=== PATIENT | female | born 1985 | race Caucasian/White ===

== ENCOUNTER 2022-06-24 10:31 | Outpatient (CLI) | payer BC, SELFPAY ==
[2022-06-24 16:59] LABS: Chlamydia DNA Amplified* NOT DETECTED (No Detected); GC DNA Amplified* NOT DETECTED (No Detected)
[2022-06-24 17:02] LABS: Hepatitis B Surface Antigen* Negative (Negative)
[2022-06-24 17:06] LABS: TSH With Reflex to FT4* 0.686 uIU/mL (0.270-4.200)
[2022-06-24 17:17] LABS: HIV 1/2/P24 Combo Screen* Negative (Negative)
[2022-06-24 17:20] LABS: Hepatitis C Virus Antibody* Negative (Negative)
[2022-06-25 16:15] LABS: Rubella Antibody IgG 49.2 IU/mL
[2022-06-25 21:10] LABS: Rapid Plasma Reagin (RPR) Non Reactive (Non Reactive)
== END 2022-06-24 10:32 | disposition home or self-care (01) ==
PROVIDERS: Visit Provider Advanced Practice Midwife
DX: Z34.91 Encounter for supervision of normal pregnancy, unspecified, first trimester (principal); Z3A.09 9 weeks gestation of pregnancy
CPT/HCPCS: 76817; 84443; 86592; 86703; 86762; 86787; 86803; 86850; 86900; 86901; 87086; 87340; 87491; 87591

== ENCOUNTER 2022-09-02 13:31 | Outpatient (CLI) | payer BC, SELFPAY | END 2022-09-02 13:32 | disposition home or self-care (01) | LOC: US 13:31 | PROVIDERS: Visit Provider Pediatrics Neonatal-Perinatal Medicine | DX: O09.522 Supervision of elderly multigravida, second trimester (principal); Z3A.19 19 weeks gestation of pregnancy | CPT/HCPCS: 76811 ==

== ENCOUNTER 2022-10-30 08:48 | Outpatient (CLI) | payer BC, SELFPAY ==
[2022-11-01 23:10] LABS: Rapid Plasma Reagin (RPR) Non Reactive (Non Reactive)
== END 2022-10-30 08:49 | disposition home or self-care (01) ==
LOC: NFLDREF 08:48
PROVIDERS: Visit Provider Advanced Practice Midwife
DX: O09.519 Supervision of elderly primigravida, unspecified trimester (principal)
CPT/HCPCS: 86592

== ENCOUNTER 2022-12-24 10:30 | Outpatient (CLI) | payer BC, SELFPAY ==
[2022-12-25 11:42] LABS: Strep B DNA Probe NEGATIVE (Negative)
[2022-12-25 11:47] LABS: Strep B Pen/Amox Allergy No
== END 2022-12-24 10:31 | disposition home or self-care (01) ==
LOC: NFLDREF 10:30
PROVIDERS: Visit Provider Advanced Practice Midwife
DX: O09.513 Supervision of elderly primigravida, third trimester (principal); Z3A.35 35 weeks gestation of pregnancy
CPT/HCPCS: 87081; 87653

== ENCOUNTER 2023-01-29 07:01 | Outpatient (CLI) | payer BC, SELFPAY ==
--- NOTE | 2023-01-29 07:15 | CRLHL7_ITS ---
For Patients: As a result of the Century Cures Act, medical imaging exams and procedure reports are released immediately into your electronic medical record. You may view this report before your referring provider. If you have questions, please contact your health care provider. INDICATION: POST DATES COMPARISON: 09/02/2022 TECHNIQUE: Real time wheat scale imaging of the fetus was performed. Without non-stress testing. FINDINGS: Sonographic imaging demonstrates a single living intrauterine gestation. Fetus demonstrates a regular cardiac rate of 144 beats per minute. Fetus has a vertex position. The amniotic fluid volume appears decreased and there is a single deepest pocket measurement of 2.4 cm. VIDAL 4.8 cm. The fetus was active and demonstrated normal breathing movements. There was normal flexion and extension of the trunk and extremities. IMPRESSION: Normal biophysical profile score of 8 out of 8. Oligohydramnios. Dictated by Karan Cruz MD @ 01/29/2023 8:03:19 AM (Electronically Signed)
== END 2023-01-29 07:02 | disposition home or self-care (01) ==
LOC: US 07:01
PROVIDERS: Visit Provider Advanced Practice Midwife
DX: O48.0 Post-term pregnancy (principal)
CPT/HCPCS: 76819

== ENCOUNTER 2023-01-30 13:52 | Outpatient (CLI) | payer BC, SELFPAY ==
[2023-01-30 14:11] VITALS: PULSE 83; O2SAT 98
[2023-01-30 14:16] VITALS: PULSE 88; O2SAT 98
[2023-01-30 14:19] VITALS: BP 141/105; PULSE 90
[2023-01-30 14:29] VITALS: BP 129/71; PULSE 83
--- NOTE | 2023-01-30 14:51 | P.OBLDTN_ITS ---
OB - Triage/Final Diagnosis Visit Information Date of evaluation: 01/30/23 Narrative: Selene is a 37 year old 2 para 0 at 41 1/7 weeks gestation by ultrasound, who presents today for follow-up NST after BPP yesterday that shows oligohydramnios by VIDAL of 4.8. SDP was normal. It was recommended she be induced yesterday but she declined. This was discussed greatly with her in clinic yesterday. She was agreeable to NST follow-up today and BPP follow-up Wednesday, if necessary. She had a membrane sweep in clinic yesterday. She presents today with her and mom. She reports having mild cramping and contractions last evening but nothing that progressed. She went on a 4 mile walk and has been hydrating well. She would prefer not to have an induction if possible. She has been doing home methods to encourage labor including red raspberry tea, chiropractice, walking, acupunture/acupressure, and resting. She would consider castor oil as a last resort. Reason for evaluation: other (Clinic follow-up from yesterday.) Evaluation Vital signs: Vital Signs - 24 hr 01/30/23 14:11 01/30/23 14:16 01/30/23 14:19 Pulse Rate 90 Blood Pressure 141/105 H Pulse Oximetry 98 98 01/30/23 14:29 Pulse Rate 83 Blood Pressure 129/71 Pulse Oximetry Fetus (Single) Heart Rate Baseline: 130 Management Planner Variability: Moderate (6-25) Monitor Accelerations: Present Monitor Decelerations: None Final Diagnosis (1) Non-stress test reactive: Status: Acute (2) Post-dates : Status: Acute (3) Oligohydramnios: Status: Acute (4) AMA (advanced maternal age) primigravida 35+: Status: Acute Assessment & Plan Plan Detail Assessment: at 41 1/7 weeks gestation AMA Oligohydramnios Post-Dates Reactive NST She declines induction and prefers to wait for labor. Plan to discharge home and return for monitoring on Wednesday with BPP or NST. Questions answered. Patient continues to encourage labor with at home methods. She plans to avoid castor oil at this time. All questions answered. Clinic will reach out to her Wednesday morning to set up US or NST. Time Spent: Please review Coding section regarding the total time spent today in the care of this patient, separate from any independently billable service. Care includes but is not limited to a medically appropriate evaluation and ?the?documentation?of?the care?in?the?health?record.
[2023-01-30 14:54] VITALS: BP 134/83; PULSE 88
--- NOTE | 2023-01-30 15:15 | PC.OBNST ---
NST Note NST Note Start: 01/30/23 14:05 Freq: ONCE Status: Active Protocol: Document 01/30/23 15:12 [facility] (Rec: 01/30/23 15:14 [facility] [id number]) NST Note 1 Para (# of births) 0 EDC 01/22/23 Gestational Age In Weeks & Days 41 Weeks & 1 Days Patient Presented with Complaint(s) of Other Other Complaints NST performed for known oligohydramnios Reactive Yes Appropriate for Gestational Age Yes ANTONIO Soto RN Date 01/30/23 Reactive Yes Appropriate for Gestational Age Yes ANTONIO Denise Date 01/30/23 OB NST charge Yes Complete NST Note via Write Note Yes The provider's electronic signature indicates the NST is reactive/appropriate for gestational age. *Note to provider: If an addendum is required, open the patient's chart and click on the note under the Nurse/Allied Health tab.
== END 2023-01-30 15:05 | disposition home or self-care (01) ==
LOC: OB CLI 13:54 → OB 14:08
PROVIDERS: Visit Provider Advanced Practice Midwife
DX: O48.0 Post-term pregnancy (principal); O09.523 Supervision of elderly multigravida, third trimester; Z3A.41 41 weeks gestation of pregnancy
CPT/HCPCS: 59025; 99211; 99213

== ENCOUNTER 2023-02-03 06:52 | Inpatient (IN) | payer BC, SELFPAY ==
[2023-02-03] VITALS (9 sets, daily range): BP systolic 109–145; BP diastolic 56–76; PULSE 64–78; RESP 16; TEMP 36.6–36.8; O2SAT 98; BMI 38.6
--- NOTE | 2023-02-03 07:22 | W.PM.LDBA ---
Subjective History of Present Illness Time Seen by Provider: 07:15 Date Seen: 02/03/23 Comments: Patient is being admitted to Labor and Delivery for early labor. She is a 37 year old at 41.5 weeks gestation. Her full history and physical was dictated on 01/01/23 by Sanam JOHNSON with Shanel Vazquez CNM. Please see this for details. Pt states ctx started 3 pm yesterday. Able to rest last night but not sleep much. Ctx becoming steadily increasing in intensity. Mildly breathing through them in good control. Partner currently at bedside for support. Also has a backshoe person for support who will be coming in. She is coping well with labor pain/contractions. She is planning an unmedicated waterbirth. She was seen last week at which time she was noted to be oligohydramnios. She declined an IOL at that time. A follow up BPP and growth this week showed amniotic fluid on the low end of normal:? 5.9 cm VIDAL.? 2.6 cm SDP. Baby noted to be macrosomic. OB Problem List: 1. AMA Genetic testing offered, handouts given: [id number] Level II US: WNL, EFW 92% Baby aspirin recommended 2. Unplanned , excited now 3. Hx of Migraines with and without aura 4. Prepregnancy BMI >35 5. Oligohydramnios, VIDAL 4.8 (SDP 2.4) Recommended IOL at 41 weeks, pt declined Plan NST at center at 41 11/14, BPP at 41 3/7: (VIDAL 5.9, SDP 2.6) Oligo improved. Repeat BPP 02/03: 6. Macrosomia: 41.3 weeks: 9 lb 6 oz, 4243 grams OB - Problem Based A/P Additional Plan (1) AMA (advanced maternal age) primigravida 35+: Status: Acute (2) Post-dates : Status: Acute (3) Oligohydramnios: Status: Acute (4) Uterine contractions: Status: Acute Plan 37 yo at 41.5 weeks GBS negative problems: -Recent oligohydramnios, improved on follow up, but remains low normal -macrosomic Labor type: early, spontaneous Elevated BP on admit, resolved 1. Admit to L & D. 2. Monitor FHTs closely, consider switching to continious if there is concerns 3. Continue to monitor BPs, will consider pre-e labs if they remain elevated 4. Candidate for analgesia of choice. Planning unmedicated 5. Planning water . Consent signed and Hep C neg 6. Anticipate progress to NVD. Delivery/Labor/Induction Plan Plan: expectant management OB Exam Physical Exam Vital signs: Pulse BP Pulse Ox 64 145/76 H 98 02/03/23 06:21 02/03/23 06:21 02/03/23 06:34 Narrative: VSS, afebrile? General Appearance:? Calm, cooperative.? No acute distress.? Normal affect.? Psychiatric Exam: Alert and oriented, appropriate affect? HEENT: normocephalic, neck supple, full ROM? Respiratory:? Symmetrical chest wall movement.? Normal respiratory effort.? Clear to auscultation? Cardiac:? regular rate and rhythm? Abdomen: Gravid, non tender? Extremities:? normal and trace edema? Skin: warm, dry.??? Ctx:? Q 2-5 min apart.? ? Moderate? ? FHTs:? Baseline: 130.? Variability: moderate.?? Accels: present.??? Decels:? none.? SVE: 4-5/70/-2 per RN? Membranes: intact? Detailed Labor and Delivery Exam Patient Gravid: Yes
[2023-02-03 08:50] LABS: SARS PCR* Negative SARS-CoV-2 (Negative)
--- NOTE | 2023-02-03 19:01 | PM.OBPNL ---
Subjective Time Seen by Provider: 19:01 Date Seen: 02/03/23 Narrative: Selene is coping well with labor pain/contractions. Her partner, mom and executive legal secretary are with her for support. She would like to continue with non-pharmacologic methods for comfort and pain management.??She is mildly breathing through ctx. Ctx remain spaced out at least about 5 mins apart. She also had a long gap in ctx for about 30 minutes while positioned in flying cowgirl. Objective Exam: VSS, afebrile General Appearance:? Calm, cooperative. No acute distress. ? Psychiatric Exam: Alert and oriented, appropriate affect Abdomen: Gravid Ctx: ?Q 5-30 min apart. ?Mild - Moderate FHTs: WNL per RN. No decels audible w/ ctx SVE: /-2 Membranes: Intact ? Vital Signs: Last Vital Signs Temp 98 F 02/03/23 14:59 Pulse 65 02/03/23 14:59 Resp 16 02/03/23 14:59 BP 117/56 L 02/03/23 14:59 Pulse Ox 98 02/03/23 06:34 Plan Plan: Assessment:?? at 41.5 weeks gestation?? GBS negative Patient is coping well with challenges of labor.?? Labor type: Spontaneous, Early labor? complicated by: -Recent oligohydramnios, improved on follow up, but remains low normal -macrosomic Labor complicated by: -No cervical change since being admitted this AM ? Plan:?? Conversation had w/ pt about lack of cervical change. Recommended we start pitocin. Reviewed the risk of fatigue for her and intolerance for prolonged labor. Pt states she would prefer to keep going with position changes. Believes that all the position changes have prevented the baby from being on the cervix. May consider nipple stimulation or accupressure points. Declines pitocin at this time. May consider at a later time. Did briefly review the option of AROM, but reviewed may not help and concern for intolerance of labor with low fluid. Continue to monitor FHTs for decels Continue with routine intrapartum cares as ordered.?? Patient encouraged to move and change positions to promote physiologic labor and .?? Nonpharmacologic comfort measures per patient preference. Candidate for analgesia of choice if desired. Patient planning waterbirth Anticipate progress to NVD.
[2023-02-04] VITALS (25 sets, daily range): BP systolic 93–143; BP diastolic 56–75; PULSE 66–107; RESP 16–20; TEMP 36.8–37.1; O2SAT 96
--- NOTE | 2023-02-04 03:22 | P.OBPN_ITS ---
Subjective Time Seen by Provider: 03:22 Date Seen: 02/04/23 Narrative: Selene is coping well with labor pain/contractions. Dry Boss and partner are with her for support. Pt currently sleeping. Declines SVE. Briefly on monitor when she decided to rest, but removed again at pt request and returned to [facility] [place]. Objective Exam: VSS, afebrile General Appearance:? Calm, cooperative. No acute distress. ? Psychiatric Exam: Alert and oriented, appropriate affect Abdomen: Gravid Ctx: ?Q 1-12 min apart. ?Mild FHTs: Baseline: 145. Variability: moderate. Unable to determine accels vs decels when first placed on monitor. SVE: Declined Membranes: Intact ? Vital Signs: Last Vital Signs Temp 98.2 F 02/03/23 19:05 Pulse 74 02/04/23 03:20 Resp 16 02/03/23 19:05 BP 102/57 L 02/04/23 03:20 Pulse Ox 98 02/03/23 06:34 Plan Plan: Assessment:?? at 41.6 weeks gestation?? GBS neg Patient is coping well with challenges of labor.?? Labor type: Spontaneous, Prodromal labor? complicated by: -Low fluid -macrosomia Labor complicated by: -a few elevated BPs on admit, resolved -little cervical change ? Plan:?? Pt declined SVE. Reviewed continued recommendation for pitocin, as when she was briefly on monitor ctx noted to be quite spaced out, and mild enough that she is sleeping through them. She declines pitocin again at this time. Continue with routine intrapartum cares as ordered.?? Patient encouraged to move and change positions to promote physiologic labor and . Rest as needed.?? Nonpharmacologic comfort measures per patient preference. Candidate for analgesia of choice if desired. Patient planning waterbirth Anticipate progress to NVD.
--- NOTE | 2023-02-04 08:24 | P.OBPN_ITS ---
Subjective Date Seen: 02/04/23 Narrative: Selene is a 37 yo at 41 6/7 weeks gestation. She is coping well with labor pain/contractions. Her labor started on 02/02 at about 2pm. She presented to the center yesterday morning. She made slow progression after admission but has been actively moving and repositioning to encourage labor. Contractions spaced out over night. She declined augmentation with IV pitocin. She was able to rest some and this morning reports she is feeling energized. She is currently being supported by and shower doors and panels fabricator. At this time, she would prefer to eat breakfast, take a walk, and try other measures to encourage labor including Nipple stimulation. Understands the current plan of care. Questions answered to her satisfaction. She would like to continue with movement and activity for comfort and pain management.? Objective Exam: Objective: Constitutional: Alert and oriented x3, mild distress, coping well Vital signs stable, see nurse documentation Abdomen: gravid, contractions palpate mild/moderate with contractions and soft between Cervix: Most recent was last evening, 5/100/-2. NST: deferred, has been allowing intermittent monitoring. Planning NST this am. Vital Signs: Last Vital Signs Temp 98.2 F 02/04/23 07:15 Pulse 72 02/04/23 07:14 Resp 16 02/04/23 07:15 BP 118/56 L 02/04/23 07:14 Pulse Ox 98 02/03/23 06:34 Contractions Monitor mode: External (Intermittent auscultation) Contraction Frequency: 5-10 Contraction pattern: Irregular Contraction intensity: Moderate Assessment Assessment: prodromal labor and early labor Labor Progress: Slow labor progression Plan Plan: Assessment:?? at 41.6 weeks gestation?? GBS neg Patient is coping well with challenges of labor.?? Labor type: Spontaneous, Prodromal/early labor? complicated by: -Low fluid -suspected macrosomia Labor complicated by: -a few elevated BPs on admit, resolved -slow cervical change ? Plan:?? Continue with routine intrapartum cares as ordered.?? Met with patient and reviewed her plan this am. She would prefer to encourage labor on her own, she felt she was able to rest and re-energize for today. Discussed concerns with prodromal/early labor and risk for maternal and fatigue. I recommended an NST this morning for overall fetus status assessment. She is agreeable but would like to eat breakfast and walk first. She is hoping to try nipple stimulation this morning but I encouraged NST first to make sure we are not stressing baby. I did not discuss Pitocin at this time since contractions had spaced over night, and she has been declining, I agree to wait and try other ways. I did state that we would review labor changes later this morning if she is unable to encourage contractions to return. She is open to this. I will have a more in depth conversation about this at that time. Fetus has remained reassuring via intermittent auscultation. Patient encouraged to move and change positions to promote physiologic labor and .? Rest as needed.?? Nonpharmacologic comfort measures per patient preference. Candidate for analgesia of choice if desired. Patient planning waterbirth Anticipate progress to NVD.?
--- NOTE | 2023-02-04 20:04 | W.PM.OBVAGDE ---
OB Procedure Vag Delivery Mother Details Mother Details: Selene is a 37 year-old, 2 now Para 1, admitted on 02/03/23 at 41.6 days gestation. Her labor had began 02/02/2023 at 2 pm and slowly processed. On arrival yesterday, she was 4 cm and progressed to 5 cm throughout the day. She declined intervention throughout the night but was able to get some rest since her contractions had spaced out. This morning she worked with her solution designer and to promote labor progression without augmentation by nipple stimulation, activity, labor circuit, labor positioning, and rest. Labor progressed normally after it resumed and contractions began to be regular around 1245. Patient labored in the tub for the rest of her labor. : 2 Para: 1 Weeks Gestation: 41.6 Admission Date: 02/03/23 Additional Details Amniotic Membrane Status: SROM Amniotic Membrane Rupture Date: 02/04/23 Amniotic Membrane Rupture Time: 17:06 Amniotic Membrane Fluid Description: Clear Analgesia/Anesthesia Type: None Waterbirth: Yes Pitcoin: No Intrapartal Events: Prolonged Labor >20 Hrs (Prodromal labor, onset of regular contractions to complete normal) Labor Onset: 12:45 Complete: 17:30 (Assumed with pushing) Pushin:30 Heart: heart tones during second stage were reassuring via intermittent monitoring throughout. Difficult ascultation due to maternal positioning and position/ for last 45 minutes of labor. Occasionally heard with doppler but unable to obtain for a appropriate periods. Continually at bedside. Delivery Details Delivery Date: 02/04/23 Delivery Time: 18:56 Route of delivery: Infant Gender: Male Infant Viability: Alive; Heart Rate Present Position at Delivery: OA Delivery Details: Patient was admitted for spontaneous labor with prodromal labor for 24+ hours with slow progression. After onset of regular contractions she progressed normally. Cervical exam performed before she entered tub. She was 7-8 cm/100/-1 with head well applied to cervix. Over a few hours she began to feel pressure with intermittent urge to push. She began pushing intermittently at the peak of contractions with urge. SROM noted at 1706 with clear fluid. At 1730 she began pushing actively with urge with good progress. Cervical exam not performed. Patient was assumed complete with pushing at 1730. of a viable male at 1856 in hands and knees in the tub. Vertex delivered OA with assistance of patients partner. No nuchal cord or shoulder. Body delivered easily and without incident. passed between mothers legs and brought up by mother. [place] was slow to cry with vigorous stimulation. Short cord noted, some water drained from tub and fetus remained at mothers lower abdomen. Cord was clamped and cut at > 5 minutes. APGARS were 7 at one minute and 8 at five minutes respectively. was passed to father while mother was assisted from tub and transferred to bed. Intact placenta with a 3 vessel cord delivered spontaneously at 1927. Fundus firm. 1st degree identified, shallow and with pressured hemastasis was achieved therefore not repair was done. EBL 350 in the tub with QBL 25 cc, total of 375 cc. Mother and baby stable; mother plans to breastfeed. weight pending. 1 Minute Interval Total Score: 7 5 Minute Interval Total Score: 8 Additional Details Shoulder Dystocia: No Placenta Delivery Time: 19:27 Placental Delivery Description: Spontaneous Procedure Done: only Blood Loss: 375 Laceration: Perineal - 1st Degree Blood Loss Measurement Type: QBL (w/ EBL from tub) Bakri Used: No Sponge/Need Count Correct: No Cord Vessel Description: 3 Vessels Event Summary Status: Mother and infant were stable after delivery. Disposition: floor
--- NOTE | 2023-02-04 20:04 | PM.OBPNL ---
Subjective Time Seen by Provider: 15:15 Date Seen: 02/04/23 Narrative: Selene is a 37 yo at 41 6/7 weeks gestation. She is coping well with labor pain/contractions while in the tub. She is intermittently starting to have pressure with contractions. She is currently being supported by her mom, her sewing techniques demonstrator, and her partner, Nabeel.. Understands the current plan of care. Questions answered to her satisfaction. Reports concerns regarding: none. She would like to continue with tub for comfort and pain management.?? Objective Exam: Constitutional: Alert and oriented x3, moderate distress, coping well Vital signs stable, see nurse documentation Abdomen: gravid, contractions palpate strong with contractions and soft between Cervix: deferred Intermittent auscultation: 130-140's, reassuring. Vital Signs: Last Vital Signs Temp 98.8 F 02/04/23 14:35 Pulse 84 02/04/23 19:34 Resp 16 02/04/23 16:50 BP 129/65 02/04/23 19:34 Pulse Ox 98 02/03/23 06:34 Contractions Monitor mode: External (Intermittent auscultation) Contraction pattern: Regular Contraction intensity: Strong/Firm Assessment Assessment: active labor Plan Plan: Assessment:?? at 41.6 weeks gestation?? GBS neg Patient is coping well with challenges of labor.?? Labor type: Spontaneous, active labor? complicated by: -Low fluid -suspected macrosomia Labor complicated by: -a few elevated BPs on admit, resolved -Prodromal labor ? Plan:?? Continue with routine intrapartum cares as ordered.?? NST this morning was reactive. Pt continues to labor spontaneously, in the tub. Will await urge to push and continue with intermittent monitoring. Patient encouraged to move and change positions to promote physiologic labor and .? Rest as needed.?? Nonpharmacologic comfort measures per patient preference. Candidate for analgesia of choice if desired. Patient planning waterbirth. Anticipate progress to NVD
[2023-02-05 03:30] VITALS: BP 107/66; PULSE 97; RESP 18; TEMP 36.8; O2SAT 95
--- NOTE | 2023-02-05 08:13 | P.OBPN_ITS ---
OB - PN:Subj Subjective Time Seen by Provider: 08:13 Date Seen: 02/05/23 Interval history: Selene is a 37 y.o. who was admitted to L & D for prodromal labor. She had an uncomplicated NVD. Patient comments OB post-: no complaints, pain well controlled, tolerating diet and flatus present [place] infant status: doing well feeding status: exclusively Narrative: The patient feels well. The pain is well controlled with current medications. She has no new complaints. She is breast feeding and reports things are overall going well, but baby has been a bit sleepy.? the patient has done well.? Vitals have been stable.? She has remained afebrile.? Has a good appetite, is tolerating a general diet. She is voiding without difficulty.? She is passing gas and has not had a bowel movement.? She is ambulating and denies any dizziness.? Has Small amount of rubra lochia. OB - PN: Obj Exam Physical Exam: Vital signs: Temp Pulse Resp BP Pulse Ox O2 Del Method 98.3 F 97 18 107/66 95 Room Air 02/05/23 03:30 02/05/23 03:30 02/05/23 03:30 02/05/23 03:30 02/05/23 03:30 02/05/23 03:30 Narrative: GENERAL APPEARANCE: normal affect, alert, no distress MOOD: appropriate HEENT: normocephalic, neck supple, full ROM CHEST: Symmetrical chest wall movement. Normal respiratory effort. Clear to auscultation HEART: regular rate and rhythm ABDOMEN: soft, non-tender. Uterine fundus is firm, at Umbilicus, Midline and is appropriate for the stage of recovery. Bowel sounds present. PERINEUM: mild edema of the perineum, there is a 1st degree laceration that is healing well. EXTREMITIES: normal and trace edema OB - PN: A/P Vaginal Delivery Assessment and Plan (1) AMA (advanced maternal age) primigravida 35+: Status: Acute (2) Post-dates : Status: Acute (3) Oligohydramnios: Status: Acute (4) Uterine contractions: Status: Acute Plan Plan: routine care Comments: G 2 P 1 status post uncomplicated NVD 1. Continue route PP cares 2. . May see if desired. Baby sleepy, encouraged to stay until tomorrow to make sure feeding is well established. 3. Anticipate discharge home tomorrow. Pt would like to DC home this evening. Discharge instructions reviewed, but will reassess this evening to see if feedings have improved.
[2023-02-05 08:19] VITALS: BP 108/71; PULSE 73; RESP 16; TEMP 36.8; O2SAT 95
[2023-02-05 11:00] VITALS: BP 112/73; PULSE 89; RESP 16; TEMP 36.8; O2SAT 95
[2023-02-05 15:00] VITALS: BP 97/62; PULSE 89; RESP 16; TEMP 36.8; O2SAT 96
[2023-02-05 23:00] VITALS: BP 121/72; PULSE 78; RESP 18; TEMP 36.7; O2SAT 95
--- NOTE | 2023-02-06 08:06 | PM.OBDSVD1 ---
DS: Providers Provider Time Seen by Provider: 08:07 Date Seen: 02/06/23 Date of admission: 02/03/23 06:52 Primary care physician: Not a Local Provider Admitting Clinician: Shanel Vazquez CNM Attending Physician on discharge: Shanel Vazquez CNM Date of Discharge: 02/06/23 DS: Diagnosis Discharge Diagnosis (1) Normal vaginal delivery: Status: Acute (2) Lactating mother: Status: Acute Exam Narrative: Exam Narrative: VSS, afebrile GENERAL APPEARANCE: ?normal affect, alert, no distress MOOD: ?appropriate HEENT: normocephalic, neck supple, full ROM CHEST: ?Symmetrical chest wall movement. ?Normal respiratory effort. ?Clear to auscultation HEART: ?regular rate and rhythm ABDOMEN: ?soft, non-tender. Uterine fundus is firm, at Umbilicus, Midline and is appropriate for the stage of recovery. ?Bowel sounds present. PERINEUM: ?mild edema of the perineum, there is a 1st degree laceration that is healing well. EXTREMITIES: ?normal and trace edema Const: Vital Signs, click to edit/add: Vital Signs - 24 hr 02/05/23 08:19 02/05/23 11:00 02/05/23 15:00 Temperature 98.2 F 98.2 F 98.2 F Pulse Rate [Blood Pressure Cuff] 73 89 89 Respiratory Rate 16 16 16 Blood Pressure [Ri ght Arm] 108/71 112/73 97/62 Pulse Oximetry 95 95 96 Oxygen Delivery Me thod Room Air Room Air Room Air 02/05/23 23:00 Temperature 98.0 F Pulse Rate [Blood Pressure Cuff] 78 Respiratory Rate 18 Blood Pressure [Ri ght Arm] 121/72 Pulse Oximetry 95 Oxygen Delivery Me thod Room Air Documenting provider has reviewed patient's vital signs: yes OB - DS: Summary Hospital Course Hospital Course: Selene is a 37 y.o. G 2 P 1 who was admitted to L & D for early/prodromal labor. ?She had an uncomplicated NVD The patient feels well. ?The pain is well controlled with current medications. ?She has no new complaints. ?She is breast feeding and reports things are going well overall. Has improved since yesterday/.? the patient has done well.? Vitals have been stable.? She has remained afebrile.? Has a good appetite, is tolerating a general diet. ?She is voiding without difficulty.? She is passing gas and has had a bowel movement.? She is ambulating and denies any dizziness.? Has Small amount of rubra lochia. She is planning partner vasectomy and condoms for prevention. Problems: none plan: Discharge home with baby. Follow up in 2 weeks and 6 weeks. , may follow up with if needed Peripartum Data Infant delivery method: Vaginal Laceration description: Perineal - 1st Degree complications: none [place] Gender: Male Status at Discharge Functional status at discharge: independent ambulation Overall status at discharge: patient is progressing back to baseline Time Spent with Patient Time attestation: Total time spent providing and/or coordinating discharge services: Time spent: Less than 30 minutes Discharge Plan Discharge Disposition: Home, Self-Care Date of Admission: 02/03/23 06:52 Attending Provider on Discharge: Lizbeth Art Primary Care Provider: Provider,Not a Local Condition: Stable Anticipated Discharge Date/Time: 02/06/23 10:00 Discharge Medications: New docusate sodium 100 mg Capsule 100 mg PO BID PRNQty: 100 0RF Rx Instructions: Take 1 cap 1-2 times a day as needed for constipation ibuprofen 600 mg Tablet 600 mg PO Q6H PRNQty: 60 0RF Continued iris (Zingiber officinalis) 250 mg capsule 375 mg PO ONCE calcium carb-D3-mag [id number] [phone] mi-sknk-yq-mg tablet 1 tab PO ONCE Rx Instructions: administer with a meal cholecalciferol (vitamin D3) 50 mcg (2,000 unit) capsule 50 mcg PO QDAY doTerra alpha crs plus 1 pill PO DAILY doterra micro plex vmz 1 cap PO DAILY doterra xEO shayy 1 cap PO DAILY doterra tumeric 1 cap PO DAILY doterra serenity 1 cap PO DAILY doterra on guard + 1 cap PO DAILY doterra terrazyme 1 cap PO DAILY doterra pb assist 1 cap PO DAILY doterra copaiba 1 cap PO DAILY doterra mitomax 1 cap PO DAILY doterra digestzen 1 cap PO DAILY PRN garlic 300 mg capsule 300 mg PO QDAY Discontinued folic acid 800 mcg tablet 0.8 mg PO QDAY Discharge Orders: Discharge Order (Routine); Ordered 02/06/23 Ordered By: Lizbeth Art Patient Education: OB Over the Counter Medication Information, OB Vaginal/Breast Feeding Additional Instructions: Follow up in 2 week and 6 week Activity Level: Activity as Tolerated Discharge Diet: Regular Follow Up Appointments: Provider,Not a Local [Primary Care Provider] - [facility]
[2023-02-06 09:30] VITALS: BP 123/82; PULSE 79; RESP 18; TEMP 36.8
== END 2023-02-06 10:45 | disposition home or self-care (01) | DRG 560 ==
LOC: OB OUT 06:52 → OB 06:52
PROVIDERS: Admitting Provider Advanced Practice Midwife; Visit Provider Advanced Practice Midwife
DX: O63.0 Prolonged first stage (of labor) (principal); O48.0 Post-term pregnancy; O70.0 First degree perineal laceration during delivery; O41.03X0 Oligohydramnios, third trimester, not applicable or unspecified; R03.0 Elevated blood-pressure reading, without diagnosis of hypertension; Z3A.41 41 weeks gestation of pregnancy; Z37.0 Single live birth
CPT/HCPCS: 76816; 76819; 87635; J2001

== ENCOUNTER 2023-02-12 13:16 | Outpatient (CLI) | payer BC, SELFPAY ==
--- NOTE | 2023-02-12 16:21 | W.PM.LAC.MC ---
Consult Note - Mom Date of Visit Date of visit: 02/12/23 new vehicle sales consultant: Selene Aguilar Visit Code: Visit Patient's Information Phone number: [phone] : 2 Para: 1 Allergies cat dander Allergy (Mild, Verified 02/04/23 21:37) Rash nickel Allergy (Mild, Verified 02/04/23 21:37) Rash Mother's Medical History: Medical History (Updated 02/07/23 @ 00:01 by ) Migraine aura occurring with and without headache ?G43.109 - Migraine with aura, not intractable, without status migrainosus (ICD-10) Type of Contraception: boyfriend plans vasectomy Delivery Information Delivery type: Vaginal Weeks Gestation: 41.6 Gestational Age: AGA Weight: 3.85 kg Discharge Weight: 3.736 kg Baby's Information Medications: pnv Baby's Age at Visit: 8 days Baby's Provider or Clinic: [facility] Jaundice: No Reason for Consult Reason for Consult: poor feeding, sleepy, weight loss Past Experience Past Experience: No Current Frequency of Day Feedings: attempts to nurse every 2 - 3 hours around the clock Both Breasts: Yes Suck: doesn't always latch/suckle Length of Time: will attempt for about 30 minutes Pumping Pumping: Yes (not consistently) Quantity Pumped: about .5 oz total each time Supplementing EMB Supplement: Yes (a few times with a few cc's of her prenatally expressed colostrum) Formula Supplement: No Baby Elimination Number of Wet Diapers a Day: baby has not had a void in about 15 hours Number of BM a Day: about 4/day; yellow and seedy Breast/Nipple Condition Engorgement: No Maternal Nipple Condition - Left: Common Nipple Maternal Nipple Condition - Right: Common Nipple Sore Nipples: No Onsite Pre-Feed weight: 3.322 kg Post-Feed weight: 3.336 kg Milk Transferred (mL): 14 Pre-Nursing Left Nipple: Within Normal Limits Pre-Nursing Right Nipple: Within Normal Limits Post-Nursing Left Nipple: Within Normal Limits Post-Nursing Right Nipple: Within Normal Limits Assessments/Interventions Assessments/Interventions: Assessments/Interventions: Met with mom and this now 8 day old ex- term AGA baby for consult.? Mom reports she attempts to nurse baby every 2 - 3 hours, but he's very sleepy at the breast and sometimes won't latch.? She started to offer some of the colostrum she hand expressed prenatally, but it's only a few cc's each time and not after every feeding.? She has a [employer]in[employer] electric pump and has used it a few times but has only been able to pump about .5 ml total each time (which she has also offered to baby on occasion). Mom is 37 and this is her first baby, no hx of breast surgery/trauma.? Breasts are symmetrical, the intramammary distance is < 1.5 inch, the areola is not disproportionately large or bulbous.? The lower quadrants aren't rounded and she has significant stretch mendez to the outside of both breasts.? She was able to express some colostrum (about 1 ml/day) before delivery.? She reported feeling her milk came in on 02/09 but that was the only day she noticed a change in her breasts.? Nipples are everted and don't flatten or retract on compression; no damage noted. Baby has lost 165 grams (5.5 oz) since his NB visit on 02/08 and is now 14% below BW (down from 12% on the ).? Mom also reports he hasn't had a wet diaper for about 15 hours, but he has about four BM's daily.? Per mom he did not have a caput/cepalohematoma.? He favored turning his head to one side but he had a chiropractor appointment earlier this week and she feels this has helped re-align him.? He has a little bit of a receding chin.? His palate is a little high.? His upper and lower frenulum appear to be WNL.? He has a fairly strong suck on a finger and the tongue extends past the gum line; also has good lateral movement.? Mom latched him on the left side in the football hold and he had a wide latch.? He was fairly vigorous at first and swallowing was heard but after several minutes he slowed down.? He was easy to rouse but wasn't very aggressive at the breast after those first 5 or so minutes.? Mom was able to rouse him again and offered the right side.? He was sleepier on this side but swallowing was heard initially.? After about a 20 minute total nursing attempt he was weighed and had transferred 14 ml. Mom then pumped and after about 20 minutes got .5 oz.? Her flange size was assessed and it was suggested she order 20 mm flanges.? Donor milk was warmed and grandma was shown how to pace feed baby, she gave 1 oz. Plan; 1. Continue to practice nursing every 2 - 3 hours.? Offer both sides and work to keep him awake and actively nursing.? Keep the nursing sessions to 20 - 30 minutes total for now. 2. Pump after as many feeding sessions as possible but at least six times/24 hours. 3. Supplement baby with 2 oz after every nursing session (we did 1 oz in clinic d/t time constraints, they will start 2 oz at the next feeding). 4. F/U in the Center on 02/13 for a weight check and in on 02/15. 5. Will fax note to baby's PCP at [facility] and the clinic was also called to advise provider of baby's weight loss and the plan. Meds Home Medications and Allergies Home Medications Medication Instructions Recorded Confirmed Type cholecalciferol (vitamin D3) 50 50 mcg PO QDAY 06/24/22 02/03/23 History mcg (2,000 unit) capsule doTerra alpha crs plus 1 pill PO DAILY 06/24/22 02/04/23 History doterra copaiba 1 cap PO DAILY 06/24/22 02/04/23 History doterra digestzen 1 cap PO DAILY PRN 06/24/22 02/04/23 History doterra micro plex vmz 1 cap PO DAILY 06/24/22 02/04/23 History doterra mitomax 1 cap PO DAILY 06/24/22 02/04/23 History doterra on guard + 1 cap PO DAILY 06/24/22 02/04/23 History doterra pb assist 1 cap PO DAILY 06/24/22 02/04/23 History doterra serenity 1 cap PO DAILY 06/24/22 02/04/23 History doterra terrazyme 1 cap PO DAILY 06/24/22 02/04/23 History doterra tumeric 1 cap PO DAILY 06/24/22 02/04/23 History doterra xEO shayy 1 cap PO DAILY 06/24/22 02/04/23 History iris (Zingiber officinalis) 250 375 mg PO ONCE 08/14/22 02/03/23 History mg capsule calcium carb-vit A9-awdrjgygh-duor 1 tab PO ONCE 10/30/22 02/03/23 History 333 mg-200 unit-133 mg-5 mg tablet garlic 300 mg capsule 300 mg PO QDAY 12/24/22 02/03/23 History Allergies Allergy/AdvReac Type Severity Reaction Status Date / Time cat dander Allergy Mild Rash Verified 02/04/23 21:37 nickel Allergy Mild Rash Verified 02/04/23 21:37
== END 2023-02-12 13:17 | disposition home or self-care (01) ==
LOC: OB LAC 13:17
PROVIDERS: Visit Provider Advanced Practice Midwife
DX: Z39.1 Encounter for care and examination of lactating mother (principal)
CPT/HCPCS: 99211

== ENCOUNTER 2024-09-12 13:47 | Outpatient (CLI) | payer BC, SELFPAY ==
--- NOTE | 2024-09-12 14:00 | CRLHL7_ITS ---
For Patients: As a result of the Century Cures Act, medical imaging exams and procedure reports are released immediately into your electronic medical record. You may view this report before your referring provider. If you have questions, please contact your health care provider. HISTORY: Dating and viability COMPARISON: None available of this gestation. TECHNIQUE: Transvaginal ultrasound examination of the early was performed. FINDINGS: A single intrauterine gestational sac is seen with a pole. The crown-rump length measurement of 4.7 cm gives an estimated gestational age of 11 weeks 3 days with an estimated date of delivery of 03/31/2025. This correlates well with the LMP of 06/30/2024 which gives a clinical age of 10 weeks 4 days. Regular cardiac activity is seen at 163 BPM. There is no sign of free fluid in the pelvis. The right ovary has simple cyst which could be a corpus luteum cyst of . There is normal color Doppler flow in the right ovary. The left ovary can not be identified. IMPRESSION: Single intrauterine gestation with estimated age of 11 weeks 3 days. Regular cardiac activity is seen. Dictated by Kyler Garrison MD @ 09/12/2024 11:08:03 PM (Electronically Signed)
== END 2024-09-12 13:48 | disposition home or self-care (01) ==
LOC: US 13:47
PROVIDERS: Visit Provider Advanced Practice Midwife
DX: Z34.91 Encounter for supervision of normal pregnancy, unspecified, first trimester (principal); Z3A.11 11 weeks gestation of pregnancy
CPT/HCPCS: 76817; 86703; 86706; 86803; 86850; 87086; 87340

== ENCOUNTER 2024-09-12 15:09 | Outpatient (CLI) | payer BC, SELFPAY | END 2024-09-12 15:10 | disposition home or self-care (01) | PROVIDERS: Visit Provider Advanced Practice Midwife | DX: Z34.91 Encounter for supervision of normal pregnancy, unspecified, first trimester (principal); O09.521 Supervision of elderly multigravida, first trimester; Z3A.10 10 weeks gestation of pregnancy | CPT/HCPCS: 86592; 86703; 86704; 86706; 86762; 86787; 86803; 86850; 87086; 87340; 87491; 87591 ==

== ENCOUNTER 2024-11-30 10:47 | Outpatient (CLI) | payer BC, SELFPAY | END 2024-11-30 10:48 | disposition home or self-care (01) | LOC: US 10:49 | PROVIDERS: Visit Provider Advanced Practice Midwife | DX: O09.522 Supervision of elderly multigravida, second trimester (principal); Z3A.21 21 weeks gestation of pregnancy | CPT/HCPCS: 76811 ==

== ENCOUNTER 2025-01-18 11:04 | Outpatient (CLI) | payer BC, SELFPAY | END 2025-01-18 11:05 | disposition home or self-care (01) | LOC: NFLDREF 01-22 01:23 | PROVIDERS: Visit Provider Advanced Practice Midwife | DX: O09.523 Supervision of elderly multigravida, third trimester (principal); Z3A.28 28 weeks gestation of pregnancy | CPT/HCPCS: 86592 ==

== ENCOUNTER 2025-03-09 11:50 | Outpatient (CLI) | payer BC, SELFPAY | END 2025-03-09 11:51 | disposition home or self-care (01) | LOC: NFLDREF 03-15 18:40 | PROVIDERS: Visit Provider Advanced Practice Midwife | DX: Z34.83 Encounter for supervision of other normal pregnancy, third trimester (principal) | CPT/HCPCS: 87081; 87653 ==

== ENCOUNTER 2025-04-12 10:24 | Inpatient (IN) | payer BC, SELFPAY ==
[2025-04-12] VITALS (18 sets, daily range): BP systolic 108–139; BP diastolic 58–88; PULSE 60–85; RESP 16–18; TEMP 36.4–37; O2SAT 96–98
[2025-04-12] MEDS: miSOPROStoL 800 MCG/4 TABLET PR (11:39)
[2025-04-12] MEDS: LIDOCAINE 1 % PF 30 ML INJECTION (11:54)
[2025-04-12] MEDS: lidocaine HCL 2 % JELLY (TOP) STERILE 6 ML TOPICAL (11:55)
--- NOTE | 2025-04-12 14:02 | P.LDBA_ITS ---
Subjective History of Present Illness Narrative: Patient is being admitted to Labor and Delivery for spontaneous labor at term. She is a 39 year old at 40.6 weeks gestation. Her full history and physical was dictated by Kwabena Vazquez CNM on 03/16/25. Please see this for details. she started li around 0100 this am but they became more regular around []. She present to L&D around []. Her SVE arund that time found her to be 7-8cm/80%/-1 with buldgin bag of fluid noted. She desires a water and they RN is working getting an appropriate tracing before getting her into the tub. She is supported by her partner, sister, and street sweeper operator. Specific Issues/Plans Partner: Nabeel son: Jackson Moving to [place] after baby is born. H&P completed by TAMMY Painter on 03/16/2025 # AMA, >40 genetic screening: Low risk 20 week US Growth and anatomy US at 32-36 weeks: Pt declines NST starting at 36 weeks, MFM recommends BPP starting at 37 wks: Pt aware and declines. IOL recommended at 39-40 weeks: declines IOL #. Hx of oligohydramnios last , post-dates #. Prepregnancy BMI 38.5 Consider weekly NST starting at 37 weeks Growth included above #. Declines blood products unless absolutely necessary, prefers conversation with options first Ultrasounds: Level II [facility] 11/30/2024: Impression: 1. Saenz intrauterine at 21w 6d gestational age. 2. None of the anomalies commonly detected by ultrasound were evident in the detailed anatomic survey described above. 3. Growth parameters and estimated weight were consistent with a large for gestational age pattern of growth. 4. The amniotic fluid volume appeared normal. Recommendation: We discussed the findings on today's ultrasound with the patient. Selene had low risk cfDNA screening in this and she has declined diagnostic testing with amniocentesis. Given BMI 38, EFW > 90th percentile and history of oligohydramnios (post-dates) in prior , recommend repeat assessment of growth and anatomy at 32 weeks and weekly BPP at 37 weeks, which I anticipate will be scheduled through [facility]. COVID:?? Flu:?? Tdap:?? 32wk Mental Health:?? Pap: DUE PP OB - Problem Based A/P Additional Plan (1) Pain during labor: Status: Acute (2) Obesity affecting : Status: Acute (3) Advanced maternal age in multigravida: Status: Acute Plan ASSESSMENT:? at 40.6 weeks gestation? GBS negative? complicated by AMA (>40) and obesity? Labor type: spontaneous Blood type:?A+ ?? PLAN:? 1. Candidate for analgesia of choice. Planning unmedicated .? 2. Desires water . Consent signed. Hep C negative.? 3. Anticipate ? 4. Expectant management at this time.? 5. IV not needed at this time. Consider if pt condition changes per policy. 6. Intermittent ausculation after reactive tracing is obtained. Delivery/Labor/Induction Plan Plan: expectant management OB Result Labs Blood Type: A (+) positive Rubella: immune RPR/VDLR: nonreactive GBS Status: negative HBsAG: negative OB Exam Physical Exam Vital signs: Pulse BP 76 110/60 04/12/25 13:48 04/12/25 13:48 Narrative: Psychiatric:? Alert and oriented x3, coping well with labor. HEENT:? Normocephalic, atraumatic? Neck:? Supple without adenopathy or thyromegaly? Lungs:? Clear to auscultation bilaterally? Heart:? Regular rate and rhythm, no murmur, rub or gallop? Abdomen:? Soft, nontender, and gravid? Extremities:? No edema or erythema? Detailed Labor and Delivery Exam Dilation (cm): 7 Effacement (%): 80 Cervix position: mid Consistency: soft Contraction Frequency: 2-3 Tachysystole: No Contraction intensity: Strong/Firm Fetus (Single) Station: -1 Amniotic Membrane Status: intact Fetus B heart rate baseline: 130 monitor accelerations: Present monitor decelerations: None intermodal owner operator truck driver variability: Moderate (11-25)
--- NOTE | 2025-04-12 14:11 | W.PM.VAGDE_ITS ---
OB Procedure Vag Delivery Mother Details Mother Details: The patient is a 39 year-old, 3, Para 1, admitted on 04/12/25 at 40.6 Days gestation. : 3 Para: 2 Weeks Gestation: 40.6 Admission Date: 04/12/25 Additional Details Amniotic Membrane Status: SROM Amniotic Membrane Rupture Date: 04/12/25 Amniotic Membrane Rupture Time: 10:39 Amniotic Membrane Fluid Description: Meconium Stained Analgesia/Anesthesia Type: None Waterbirth: Yes Pitcoin: No Intrapartal Events: Mod/Heavy Meconium Fluid Labor Onset: 07:00 Complete: 10:40 Pushin:40 Heart: heart tones during second stage were not auscultated due to a very short second stage and minimal time from taking her off the continuos tracing to delivery. Reactive tracing was obtained before getting into the tub. Delivery Details Delivery Date: 04/12/25 Delivery Time: 10:50 Route of delivery: Gender: Female Viability: Alive; Heart Rate Present Position at Delivery: OA Delivery Details: Patient was admitted for active labor and progressed normally. SROM noted at 1039 in the tub with one small gush of fluid. It did appear to be clear at that time but there was some maternal stool present in the tub that made clear visualization difficult. With delivery of the body moderate meconium stained fluid as well as terminal meconium was noted. This was not noted at any time before delivery of the body. Patient was presumed complete with spontaneous pushing at 1040. of a viable female at 1050 in hands and knees in the tub. Vertex delivered OA. Umbilical cord noted to be around the shoulders after delivery of the baby was easily reduced before moving baby between moms leg for her to lift out of the water with assistance. No shoulder. Body delivered easily and without incident. Infant passed to mothers hand and onto her abdomen with a vigorous cry. Selene was assisted to get out of the tub around 3 minutes after for increased bleeding in the tub for assessment. Encouraged her to consider clamping the cord at that time for safety of both her and baby when getting out of the tub. She declined and was assisted with support to both her and the baby by staff and her support system. Bleeding after exiting the tub was minimal. Cord was clamped and cut at > 5 minutes. APGARS were 8 at one minute and 8 at five minutes respectively. Mouth was bulb suctioned. Intact placenta with a 3 vessel cord delivered at 1147. At about 25 minutes after delivery I discussed with the patient the recommendation for Cytotec to assist with delivery of the placenta as it was not releasing and the risks/benefits of waiting vs intervention at this time. She declined so offered and she accepted alternatives of and squatting. This was not successful so at 1139 she was agreeable to rectal Cytotec. RN left to call the infection control rn OB for evalua tion but the placenta delivered spontaneously before this call could be completed. Fundus firm. A small 2nd degree identified and repaired in typical fashion. EBL 500 cc with 400mL in the tub and 100mL in the drape. Mother and baby stable; mother plans to breastfeed. weight 4100g. 1 Minute Interval Total Score: 8 5 Minute Interval Total Score: 8 Additional Details Shoulder Dystocia: No Placenta Delivery Time: 11:47 Placental Delivery Description: Spontaneous Delivery repair: Vicryl Procedure Done: Global Blood Loss: 500 Laceration: Perineal - 2nd Degree Episiotomy Description: None Blood Loss Measurement Type: EBL Bakri Used: No Sponge/Need Count Correct: Yes Cord Vessel Description: 3 Vessels Event Summary Status: Mother and infant were stable after delivery. Disposition: floor
[2025-04-13 00:35] VITALS: BP 116/78; PULSE 81; RESP 16; TEMP 36.9; O2SAT 96
[2025-04-13 04:55] VITALS: BP 118/81; PULSE 66; RESP 16; TEMP 36.5; O2SAT 96
[2025-04-13 06:46] LABS: Hemoglobin* 11.8 gm/dL (12.0-16.0)
[2025-04-13 11:00] VITALS: BP 110/73; PULSE 67; RESP 18; TEMP 36.7; O2SAT 96
--- NOTE | 2025-04-13 13:54 | PM.OBDSVD1 ---
DS: Providers Provider Date Seen: 04/13/25 Date of admission: 04/12/25 10:24 Primary care physician: Not a Local Provider Admitting Clinician: Carmen Thomason CNM Attending Physician on discharge: Charlette MUNOZ Date of Discharge: 04/13/25 DS: Diagnosis Discharge Diagnosis (1) care and examination of lactating mother: Status: Acute Exam Narrative: Exam Narrative: GENERAL APPEARANCE:? normal affect, alert, no distress MOOD:? appropriate CHEST:? clear to auscultation HEART:? regular rate and rhythm ABDOMEN:? soft, non-tender the uterine fundus is 1 finger breadth below Umbilicus, Midline and is appropriate for the stage of recovery. PERINEUM:? mild edema of the perineum, there is a Perineal Laceration,? it is well approximated with minimal edema and no erythema EXTREMITIES:? normal and no edema Const: Vital Signs, click to edit/add: Vital Signs - 24 hr 04/12/25 16:10 04/12/25 19:40 04/13/25 00:35 Temperature 97.8 F 98.6 F 98.4 F Pulse Rate [Pulse Oximeter] 81 77 81 Respiratory Rate 16 16 16 Blood Pressure [Le ft Arm] 110/73 108/73 116/78 Pulse Oximetry 98 96 96 Oxygen Delivery Me thod Room Air Room Air Room Air 04/13/25 04:55 04/13/25 11:00 Temperature 97.7 F 98.0 F Pulse Rate [Pulse Oximeter] 66 67 Respiratory Rate 16 18 Blood Pressure [Le ft Arm] 118/81 110/73 Pulse Oximetry 96 96 Oxygen Delivery Me thod Room Air Room Air OB - DS: Summary Hospital Course Hospital Course: Selene is a 39 y.o. G 3 now P 2011 who was admitted to L & D for active labor.? She had a NVD that was uncomplicated. The patient feels well.? The pain is well controlled with current medications.? She has no new complaints.? She is breast feeding and reports things are going well. the patient has done well.? Vitals have been stable.? She has remained afebrile.? Has a good appetite, is tolerating a general diet.? She is voiding without difficulty.? She is passing gas and has not had a bowel movement.? She is ambulating and denies any dizziness.? Has small amount of rubra lochia. She is planning Caya diaphragm for prevention.? ?? Problems: none? ?? plan:? Discharge home with baby.? Follow up in 2 weeks and 6 weeks.? , may see if needed? Hgb 11.8. ? Peripartum Data delivery method: Vaginal Laceration description: Perineal - 2nd Degree Episiotomy description: None complications: none [place] Gender: Female Infant Discharge Plan: Home Status at Discharge Overall status at discharge: patient is progressing back to baseline Time Spent with Patient Time attestation: Total time spent providing and/or coordinating discharge services: Time spent: Less than 30 minutes Discharge Plan Discharge Disposition: Home, Self-Care Date of Admission: 04/12/25 10:24 Attending Provider on Discharge: Margie Mendosa Primary Care Provider: Provider,Not a Local Condition: Stable Anticipated Discharge Date/Time: 04/13/25 14:01 Discharge Medications: Continued iris (Zingiber officinalis) 250 mg capsule 375 mg PO ONCE calcium carb-D3-mag [id number] [phone] ej-jcbf-yr-mg tablet 1 tab PO ONCE Rx Instructions: administer with a meal cholecalciferol (vitamin D3) 50 mcg (2,000 unit) capsule 50 mcg PO QDAY doTerra alpha crs plus 1 pill PO DAILY doterra micro plex vmz 1 cap PO DAILY doterra xEO shayy 1 cap PO DAILY doterra tumeric 1 cap PO DAILY doterra serenity 1 cap PO DAILY doterra on guard + 1 cap PO DAILY doterra terrazyme 1 cap PO DAILY doterra pb assist 1 cap PO DAILY doterra copaiba 1 cap PO DAILY doterra mitomax 1 cap PO DAILY doterra digestzen 1 cap PO DAILY PRN garlic 300 mg capsule 300 mg PO QDAY Cyan Pepper PO Discharge Orders: Discharge Order (Routine); Ordered 04/13/25 Ordered By: Margie Mendosa Patient Education: OB Over the Counter Medication Information, OB Vaginal/Breast Feeding Activity Level: No Restrictions Discharge Diet: Regular Follow Up Appointments: Provider,Not a Local [Primary Care Provider, Family Practice] Forms: [facility] Info Instructions
== END 2025-04-13 14:40 | disposition home or self-care (01) | DRG 560 ==
LOC: OB OUT 10:24 → OB 10:24
PROVIDERS: Admitting Provider Advanced Practice Midwife; Visit Provider Advanced Practice Midwife
DX: O70.1 Second degree perineal laceration during delivery (principal); O99.214 Obesity complicating childbirth; E66.9 Obesity, unspecified; O77.0 Labor and delivery complicated by meconium in amniotic fluid; Z3A.40 40 weeks gestation of pregnancy; Z37.0 Single live birth
CPT/HCPCS: 36415; 85018; 86592; A9270; J2003

== ENCOUNTER 2025-04-16 11:00 | Outpatient (CLI) | payer BC, SELFPAY ==
--- NOTE | 2025-04-18 16:39 | W.PM.LAC.MC ---
Consult Note - Mom Date of Visit Date of visit: 04/16/25 Reason for consultation: Assistance Needed and Low Milk Supply (history) Visit Code: Visit Patient's Information Phone number: [phone] Para: 2 Allergies cat dander Allergy (Mild, Verified 04/10/25 09:41) Rash nickel Allergy (Mild, Verified 04/10/25 09:41) Rash black dye Allergy (Mild, Uncoded 04/10/25 09:41) Mother's Medical History: Medical History (Updated 04/16/25 @ 16:58 by Shanel Vazquez CNM) History of oligohydramnios ?Z87.59 - Personal history of other complications of , childbirth and the puerperium (ICD-10) Obesity, Class II, BMI 35-39.9 ?E66.812 - Obesity, class 2 (ICD-10) Normal vaginal delivery ?O80 - Encounter for full-term uncomplicated delivery (ICD-10) Elevated blood pressure reading without diagnosis of hypertension ?R03.0 - Elevated blood-pressure reading, without diagnosis of hypertension (ICD-10) Basal cell carcinoma ?C44.91 - Basal cell carcinoma of skin, unspecified (ICD-10) Migraine aura occurring with and without headache ?G43.109 - Migraine with aura, not intractable, without status migrainosus (ICD-10) Delivery Information Delivery type: Vaginal Gestational Age: 40+6 Gestational Weight For Age: LGA Weight: 4.1 kg Discharge Weight: 4.011 kg Percentage weight loss: 2.2 Baby's Information Baby's Age at Visit: 4 days Baby's Provider or Clinic: [facility] Jaundice: No Past Experience Past Experience: Yes (did not develop a great milk supply, needed to supplement early on) Current Frequency of Day Feedings: every 2-3 hrs day andnight Both Breasts: Yes Suck: strong Latch: wide, deep, comfortable Length of Time: 10-15 min ea side Pumping Pumping: No Supplementing EBM Supplement: No Formula Supplement: No Baby Elimination Number of Wet Diapers a Day: 6-8/day Number of BM a Day: 1/day yellow in color for 2 days now Breast/Nipple Condition Breast Information: Breasts are symmetrical with rounded lower quadrants, intramammary distance is less than 1.5 inches. No erythema. Nipples are supple, everted prior to feeding. Breast Shape: Round and Pliable Engorgement: No Maternal Nipple Condition - Left: Common Nipple Maternal Nipple Condition - Right: Common Nipple Sore Nipples: No Baby Assessment Skin: Normal Tongue/frenulum: Normal/elastic Palate: Average Lips: Relaxed and Symmetrical Jaw Alignment: Symmetrical Mucosa: Eads, moist Onsite Observation Pre-Feed weight: 3.814 kg Post-Feed weight: 3.838 kg Milk Transferred (mL): 24 Position: Cross cradle Attachment/latch-on achieved: Easily (babe latches well, wide open mouth, deep latch, rhythmic suckling) Suck pattern: Suck burst and normal rest Swallow: Audible, consistent Behavior following feed: Alert, content Pre-Nursing Left Nipple: Within Normal Limits Pre-Nursing Right Nipple: Within Normal Limits Post-Nursing Left Nipple: Within Normal Limits Post-Nursing Right Nipple: Within Normal Limits Assessments/Interventions Education provided: Early feeding cues to maximize timing of latching, Asymmetric latch technique for wide/deep latch to increase milk, Transfer for baby and increase comfort for mom, Supply/demand nature of milk supply and Pumping for milk management (recom pump after fdgs 2-3x/day; give baby anything pumped; may help evaluate if babe is draining breast well) Feeding Plan: Breastfeed for 15-20 on each breast, listening for active swallowing Pump both breasts for: 15 minutes after feeding 2-3 times/day for extra stimulation and to be sure baby is draining breast well. Give baby anything milk expressed Use a syringe/feeding tube, cup, or bottle for feedings based on preference Rest, and repeat every 2-3 hours, watch for early feeding cues Try skin to skin to increase milk bindery production manager expression 2-3 times/day may result in more milk than pumping alone. Consider herbal supplements such as GoLacta, Mothers Milk Tea, or More Milk Plus Discussed weight loss today of 7% on day 4 of life acceptable per Newt scale; however, concerned at lack of BMs as this should be 3-4/day. Baby has appt with Peds provider tomorrow for weight check; offer babe any EBM pumped and reevaluate at appt tomorrow. Mom to stay the course with feeding every 2-3 hours, herbals she's doing, add in pumps if not exhausting If need to supplement, use SNS at the breast for nipple/breast stimulation while awaiting lab results Follow-Up Recommend mom be seen by provider for:: Discussed a few labs that could be checked to evaluate for Lactogenesis II Prolactin, testosterone, Hgb A1C Discussed with Shanel Vazquez who will order labs and contact mom for appt After lab results are in, can guide thoughts/treatment better Time Spent Time spent with patient (min): 90 Meds Home Medications and Allergies Home Medications ?Medication ?Instructions ?Recorded ?Confirmed ?Type cholecalciferol (vitamin D3) 50 50 mcg PO QDAY 06/24/22 04/10/25 History mcg (2,000 unit) capsule doTerra alpha crs plus 1 pill PO DAILY 06/24/22 04/10/25 History doterra copaiba 1 cap PO DAILY 06/24/22 04/10/25 History doterra digestzen 1 cap PO DAILY PRN 06/24/22 04/10/25 History doterra micro plex vmz 1 cap PO DAILY 06/24/22 04/10/25 History doterra mitomax 1 cap PO DAILY 06/24/22 04/10/25 History doterra on guard + 1 cap PO DAILY 06/24/22 04/10/25 History doterra pb assist 1 cap PO DAILY 06/24/22 04/10/25 History doterra serenity 1 cap PO DAILY 06/24/22 04/10/25 History doterra terrazyme 1 cap PO DAILY 06/24/22 04/10/25 History doterra tumeric 1 cap PO DAILY 06/24/22 04/10/25 History doterra xEO shayy 1 cap PO DAILY 06/24/22 04/10/25 History iris (Zingiber officinalis) 250 375 mg PO ONCE 08/14/22 04/10/25 History mg capsule calcium 333 mg-vit D3 200 1 tab PO ONCE 10/30/22 04/10/25 History unit-magnesium 133 mg-zinc 5 mg tablet garlic 300 mg capsule 300 mg PO QDAY 12/24/22 04/10/25 History Cyan Pepper PO 02/09/25 04/10/25 History Allergies Allergy/AdvReac Type Severity Reaction Status Date / Time cat dander Allergy Mild Rash Verified 04/10/25 09:41 nickel Allergy Mild Rash Verified 04/10/25 09:41 black dye Allergy Mild Uncoded 04/10/25 09:41
== END 2025-04-16 11:01 | disposition home or self-care (01) ==
LOC: OB LAC 04-18 08:45
PROVIDERS: Visit Provider Advanced Practice Midwife
DX: Z39.1 Encounter for care and examination of lactating mother (principal)
CPT/HCPCS: G0463

== ENCOUNTER 2025-04-17 13:55 | Outpatient (CLI) | payer BC, SELFPAY | END 2025-04-17 13:56 | disposition home or self-care (01) | LOC: NFLDREF 04-19 19:10 | PROVIDERS: Visit Provider Advanced Practice Midwife | DX: O92.4 Hypogalactia (principal) | CPT/HCPCS: 84146; 84403; 84443 ==

== ENCOUNTER 2025-05-02 12:46 | Outpatient (CLI) | payer BC, SELFPAY ==
--- OUTSIDE RECORDS SUMMARY | 2025-05-02 12:55 | XMS_ITS | Encounter Summary ---
[facility] Address [address] [place] [address] Care Team Providers Care Community Services Coordinator Name Role Phone No Primary/Referring, Phy Primary Care Provider Unavailable Encounter Details Date Type Department Care Team (Late st Contact Info) Description 05/18/2019 [facility] [address] [facility] [place] [place] [id number] José Miguel Sheldon DPM [address] [place] [address] FMLA Social History Tobacco Use Types Packs/Day Years Used Date Smoking Tobacco: Never Smokeless Tobacco: Never Alcohol Use Standard Drinks/Week Comments Yes 0 (1 standard drink = 0.6 oz pur e alcohol) not often Comments No Sex and Gender Information Value Date Recorded Sex Assigned at Not on file Legal Sex Female 12:21 PM CDT Gender Identity Not on file Sexual Orientation Not on file documented as of this encounter Plan of Treatment Not on file documented as of this encounter Visit Diagnoses Not on filedocumented in this encounter Care Teams Community Services Coordinator Relationship Specialty Start Date End Date No Primary/Referring, Austen PCP - General 05/18/19 documented as of this encounter
--- OUTSIDE RECORDS SUMMARY | 2025-05-02 12:55 | XMS_ITS | Encounter Summary ---
Author Organization [facility] Address [address] [place] [address] Care Team Providers Care Film Rental Clerk Name Role Phone No Primary/Referring, Phy Primary Care Provider Unavailable Encounter Details Date Type Department Care Team (Late st Contact Info) Description 05/18/2019 [facility] [address] [facility]. [place], [place] [id number] José Miguel Sheldon DPM [address] [place] [address] ATTENDING MD STATEMENT Social History Tobacco Use Types Packs/Day Years [...] on filedocumented in this encounter Care Teams Film Rental Clerk Relationship Specialty Start Date End Date No Primary/Referring, Austen PCP - General 05/18/19 documented as of this encounter
--- OUTSIDE RECORDS SUMMARY | 2025-05-02 12:55 | XMS_ITS | Clinical Summary ---
Author Organization [facility] Address [address] [place] [address] Care Team Providers Care Wind Farm Engineer Name Role Phone No Primary/Referring, Austen Primary Care Provider Unavailable Source Comments You are receiving this document as you are listed as the primary care provider,follow-up provider, or the patient has been referred to you for consultation.This is in compliance with the Medicare and[facility] EHR Incentive Program,which states Providers who transition their patient to another setting of careor provider of care or refers their patient to another provider of care shouldprovide summary care record for each transition of care or referral. [employer] Allergies No known active allergies Medications acetaminophen (TYLENOL) 325 MG tablet Take 3 Tablets by mouth every 8 hours as needed for Pain. 30 Tablet 05/14/2019 Active ibuprofen (MOTRIN) 600 MG tablet Take 1 Tablet by mouth every 6 hours as needed for Pain. 30 Tablet 05/14/2019 Active oxyCODONE (ROXICODONE) 5 MG immediate release tabletIndication s:Pain of toe, unspecified laterality Take 1 Tablet by mouth every 4 hours as needed for Pain. 10 Tablet 05/16/2019 Active hydrOXYzine HCl (ATARAX) 25 MG tabletIndication s:Pain of toe, unspecified laterality Take 1-2 Tablets by mouth every 6 hours as needed for Itching. 20 Tablet 05/16/2019 Active Social History Tobacco Use Types Packs/Day Years [...] on file Sexual Orientation Not on file Last Filed Vital Signs Vital Sign Reading Time Taken Comments Blood Pressure 145/102 05/14/2019 12:23 PM CDT Pulse 96 05/14/2019 12:23 PM CDT Temperature 36.7 C (98.1 F) 05/14/2019 12:23 PM CDT Respiratory Rate 20 05/14/2019 12:23 PM CDT Oxygen Saturation 98% 05/14/2019 12:23 PM CDT Inhaled Oxygen Concentration - - Weight - - Height - - Body Mass Index - - Plan of Treatment Health Maintenance Due Date Last Done Comments Cervical Cancer Screening Due 1984 Hep C Screening (Preventive Services) 1984 Mammogram 1984 HIV Screening (Preventive Services) 2000 Adult Preventive Visit 2002 DTaP/Tdap/Td Vaccine (1 - Tdap) 2003 HepB Vaccine (1) 2003 COVID-19 Vaccine (1 - 2023-2 5 season) 2024 Influenza Vaccine (Season Ended) 2025 Zoster/Shingles Vaccine (1 of 2) 2034 HPV Vaccine Aged Out No longer eligi ble based on patient's age to complete this topic HepA Vaccine Aged Out No longer eligi ble based on patient's age to complete this topic Hib Vaccine Aged Out No longer eligi ble based on patient's age to complete this topic IPV (Polio) Vaccine Aged Out No longe r eligible based on patient's age to complete this topic MCV4 Vaccine Aged Out No longer eligi ble based on patient's age to complete this topic Meningococcal B Vaccine Aged Out No l onger eligible based on patient's age to complete this topic Pneumococcal Vaccine Aged Out No long er eligible based on patient's age to complete this topic Insurance BS [employer] Care Teams Wind Farm Engineer Relationship Specialty Start Date End Date No Primary/Referring, Phy PCP - General 05/18/19
--- OUTSIDE RECORDS SUMMARY | 2025-05-02 12:55 | XMS_ITS | Clinical Summary ---
Author Organization [facility] Address [address] [place] [id number] Care Team Providers Care Script Editor Name Role Phone No Ref-Primary, Physician Primary Care Provider Selene Chambers PA-C Unavailable Allergies Active Allergy Reactions Criticality Noted Date Comments Aspirin 01/20/2018 Nickel 01/20/2018 No Clinical Screening - See Comments 01/20/2018 Black Dye Medications Multiple Vitamins-Minerals (DAILY MULTI PO) Act azeem Nutritional Supplements (NUTRITIONAL SUPPLEMENT PO) Activ e norethindrone (MICRONOR) 0.35 MG tabletIndications: Visit for oral contraceptive prescription Take 1 tablet (0.35 mg) by mouth daily 84 tablet 4 1 Active Active Problems Problem Noted Date Diagnosed Date Morbid obesity 05/23/2020 Presence of intrauterine contraceptive device Migraine with visual aura 01/20/2018 Migraines Overview (01/23/2018): Visual aura rarely. Immunizations Immunization Administration Dates Next Due DTAP (<7y) 1984 HPV Quadrivalent 06/20/2007,12/24/2006, 7 Hepatitis B, Adult (Energix-B/Recombivax HB) 01/10/2002,07/07/2001,05/19/2001 Hpv, Unspecified 06/20/2007,12/24/2006, 7 Influenza (H1N1) 10/28/2009 Influenza (IIV3) PF 10/13/2010 Influenza (intradermal) 09/17/2012,08/11,10/13/2010,07/24 Influenza (prior to 2023) 08/11/2011,09/07/2007 MMR (MMRII) 12/14/2012,07/23/2006,10/10/1985 Meningococcal (Menomune ) 06/02/2001 OPV, trivalent, live 05/08/1986,01/05/19 86,03/02/1985,11/28,1984 TDAP Vaccine (Adacel) 02/17/2019 Td (Adult), Adsorbed 12/09/2005,10/21/2005 Tdap (Adult) Unspecified Formulation 10/21/2005 Varicella (Varivax) 12/14/2012 Family History Medical History Relation Comments Heart Disease Father 4 heart attacks Hyperlipidemia Father Thyroid Disease Mother Hypo Ovarian Cancer Paternal Grandmother Currently 9 0yo. Asked to find out more info Relation Status Comments Father Mother Paternal Grandmother Social History Tobacco Use Types Packs/Day Years Used Date Smoking Tobacco: Never Smokeless Tobacco: Never Tobacco Cessation:Counseling Given: Yes Alcohol Use Standard Drinks/Week Comments Yes 0 (1 standard drink = 0.6 oz pur e alcohol) Rare PHQ-2 Answer Date Recorded PHQ-2 Score 0 06/19/2021 Adolescent Education Answer Date Record ed Getting School Help Needed Not on file 07/30 Comments No Sex and Gender Information Value Date Recorded Sex Assigned at Not on file Legal Sex Female 2:35 PM INVENTORY CONTROL SUPERVISOR Gender Identity Not on file Sexual Orientation Not on file Last Filed Vital Signs Vital Sign Reading Time Taken Comments Blood Pressure 112/75 08/13/2021 8:22 AM CDT Pulse 68 05/23/2020 10:32 AM CDT Temperature - - Respiratory Rate - - Oxygen Saturation - - Inhaled Oxygen Concentration - - Weight 132.9 kg (293 lb) 06/19/2021 9:35 AM CDT Height 185.4 cm (6' 1) 06/19/2021 9:35 AM CDT Body Mass Index 38.66 06/19/2021 9:35 AM CDT Plan of Treatment Not on file Insurance [employer] Care Teams Script Editor Relationship Specialty Start Date End Date No Ref-Primary, Physician PCP - General 01/10/18 Selene Chambers PA-C [address] [place] [address] [address] [facility] [address] Physician Channel Machine Operator Dermatology 06/11/21
--- NOTE | 2025-05-02 14:46 | W.PM.LAC.MF ---
Follow-Up Note: Mom Date of visit Date of visit: 05/02/25 Reason for consultation: Assistance Needed, Low Milk Supply and Infant Weight Concern Visit Code: Visit Patient's Information Allergies cat dander Allergy (Mild, Verified 05/02/25 11:22) Rash nickel Allergy (Mild, Verified 05/02/25 11:22) Rash black dye Allergy (Mild, Uncoded 05/02/25 11:22) Change in mother's history since last visit: Had her 2 week check up today; she is doing well with her recovery Delivery Information Delivery type: Vaginal Gestational Age: 40+6 Gestational Weight For Age: LGA Weight: 4.1 kg Last Weight: 3.814 kg Baby's Information Baby's name: Rajinder Vazquez Baby's Age at Visit: 20 days Baby's Provider or Clinic: [facility] Current Frequency of Day Feedings: every 2-3 hours, lots of cluster feeding Frequency of Night Feedings: same Both Breasts: Yes Suck: strong Latch: wide, deep, comfortable Length of Time: 10-15 min ea side Pumping Pumping: Yes Quantity Pumped: at most 1 oz Supplementing EBM Supplement: No Formula Supplement: No Baby Elimination Number of Wet Diapers a Day: ea feeding Number of BM a Day: almost ea feeding; green/yellow in color Breast/Nipple Assessment Breast Shape: Round and Pliable Engorgement: No Maternal Nipple Condition - Left: Common Nipple Maternal Nipple Condition - Right: Common Nipple Sore Nipples: No Onsite Observation Pre-feed weight: 3.75 kg (down 64 gms from last weight on 04/19 at [facility]) Post-Feed weight: 3.798 kg Milk Transferred (mL): 48 Pre-Nursing Left Nipple: Within Normal Limits Pre-Nursing Right Nipple: Within Normal Limits Post-Nursing Left Nipple: Within Normal Limits Post-Nursing Right Nipple: Within Normal Limits Assessments/Interventions Assessments/Interventions: observation: Babe latches well to both breasts; sustained nursing for 13 min on mom's left side Transferred 20 ml BF for 11 min on mom's right side Transferred 28 ml Acts content after feedings Offered supplement and baby took 20 ml via SNS at the breast Total for feeding 68 ml Mom documented 17 feedings yesterday; says some are longer than others, some are? more pacifying Discussed za is likely burning through more calories than she's taking in with that many feedings. Expressed my deep concern that she has lost weight from her last appt on 04/19 and is still 8.6% below birthweight and about 1 pound underweight from the expected trajectory. Based on baby's weight today she needs? 22-23 oz of milk/day to grow Based on expected weight if growing as expected she needs closer to 24-35 oz of milk/day Given milk transferred today, baby needs about 1-1.5oz supplemental milk each feeding if feeding every 10 hours; more if baby acts hungry given the catch up weight she has to gain Mom shown Supplemental Nursing System, za able to take down 20 ml for this feeding. Mom prefers this option to try and prevent introducing bottles yet. Mom has formula that she will use at home (Kendamil) as well as some colostrum expressed she will use first before the colostrum. Discussed importance of baby gaining weight for growth and brain development; mom verbalized understanding. Reviewed mom's labs that were checked (prolactin and testosterone); her body does not give the typical spike of prolactin that's expected so likely her system is compromised in it's milk making ability. Reassured mom she is doing everything she can and baby needs more than she is producing. Fdg plan: BF on left breast, 10 minutes BF on right breast, 10 minutes Then off supplement at the breast via SNS, either breast for this option Offer 1-1.5oz supplement/feeding. More if baby acts hungry given her need for catch up growth. Mom to pump after first AM feeding, more in the day if she feels able but since not getting great return with this ok to skip and put baby to breast as she's been doing. Education provided: Asymmetric latch technique for wide/deep latch to increase milk, Transfer for baby and increase comfort for mom, Supply/demand nature of milk supply, Alternative feeding methods (SNS, cup, finger feeding, bottling) and Pumping for milk management Follow-Up Suggested follow up: Appointment in 1-3 days (5 days for weight check for baby and check in on feeding plan) Time Spent Time spent with patient (min): 90 Meds Home Medications and Allergies Home Medications ?Medication ?Instructions ?Recorded ?Confirmed ?Type cholecalciferol (vitamin D3) 50 50 mcg PO QDAY 06/24/22 05/02/25 History mcg (2,000 unit) capsule doTerra alpha crs plus 1 pill PO DAILY 06/24/22 05/02/25 History doterra copaiba 1 cap PO DAILY 06/24/22 05/02/25 History doterra digestzen 1 cap PO DAILY PRN 06/24/22 05/02/25 History doterra micro plex vmz 1 cap PO DAILY 06/24/22 05/02/25 History doterra mitomax 1 cap PO DAILY 06/24/22 05/02/25 History doterra on guard + 1 cap PO DAILY 06/24/22 05/02/25 History doterra pb assist 1 cap PO DAILY 06/24/22 05/02/25 History doterra serenity 1 cap PO DAILY 06/24/22 05/02/25 History doterra terrazyme 1 cap PO DAILY 06/24/22 05/02/25 History doterra tumeric 1 cap PO DAILY 06/24/22 05/02/25 History doterra xEO shayy 1 cap PO DAILY 06/24/22 05/02/25 History iris (Zingiber officinalis) 250 375 mg PO ONCE 08/14/22 05/02/25 History mg capsule calcium 333 mg-vit D3 200 1 tab PO ONCE 10/30/22 05/02/25 History unit-magnesium 133 mg-zinc 5 mg tablet garlic 300 mg capsule 300 mg PO QDAY 12/24/22 05/02/25 History Cyan Pepper PO 02/09/25 05/02/25 History Allergies Allergy/AdvReac Type Severity Reaction Status Date / Time cat dander Allergy Mild Rash Verified 05/02/25 11:22 nickel Allergy Mild Rash Verified 05/02/25 11:22 black dye Allergy Mild Uncoded 05/02/25 11:22
--- OUTSIDE RECORDS SUMMARY | 2025-05-03 00:24 | XMS_ITS | Continuity of Care Document ---
Author Organization [place] [facility] Address [address] [facility] [address] [place] [address] Assessment Encounter Date Assessment Date Assessment LastModified by Organization Details LastModified Time 04/10/2025 04/10/2025 ASSESSMENT: Patient is a good candidate for conservative care and the prognosis is for a favorable outcome that achieves the patients' goals. We discussed etiology, activity modifications, home care, and other treatment options. Initially, it is recommended that the patient receive in-office treatment 1 times per week for 8 weeks at which time a re-evaluation will be performed to determine an appropriate change in plan. Initially, treatment will focus on joint manipulation to restore range of motion and reduce pain. We will slowly progress to therapeutic exercises and activities to improve function, strength, and stability may also be used as warranted. If the patient is not responding as expected, more invasive procedures will be discussed along with a referral. All considerations above were discussed with the patient and questions answered to satisfaction. If the patient should have any additional questions, or should the condition evolve or worsen, the patient should not hesitate to contact our office. [email or web address] Not available 04/10/2025 18:41:06 Plan of Treatment Reminders Order Date Submit Date Provider Last Modified By Organization Details Last Modified Time Details Appointments DC Treatment 05 2024 02:15P M Porfirio Burris DC Not available Not available Not available Lab None recorded. Referral None recorded. Procedures None recorded. Surgeries None recorded. Imaging None recorded. Medication Orders None recorded. Patient TargetsNo targets recorded. Patient InstructionsNo instructions recorded. Reason for Referral None Reported. Problems Name Problem SNOMED Code Status Onset Date Resolution Date Notes Provider Name and Address Organization Details Recorded Time Neck pain 50777376 Active 2024 Porfirio Burris [place] [address] [facility], [place], [address], [place] [facility] 18:29:25 Thoracic segmental dysfunction 337016374 Active 2024 Porfirio Burris [place] [address] [facility], [place], [address], [place] [facility] 18:29:25 Lumbar segmental dysfunction 726171566 Active 2024 Porfirio Burris [place] [address] [facility] [address], [place], [address], [place] [facility] 18:29:25 Lesion of lumbar spine 896817860 Active 2024 Porfirio Burris [place] [address] [facility] [address], [place], [address], [place] [facility] 18:29:25 Cervical segmental dysfunction 849566937 Active 2024 [place] [address] [facility] [address], [place], [address], [place] [facility] 18:29:26 Low back pain 397936053 Active 2024 Chucho De La Paz [place] [address] [facility] [address], [place], [address], [place] [facility] 12:12:23 Somatic dysfunction of sacral spine 591509666 Active 2024 Chucho De La Paz [address], [place], [address], [place] [facility] 12:12:23 Problem Notes None recorded. Procedures Surgical History Date Name Laterality Status Provider Name and Address Organization Details Recorded Time 5 78237: Spinal manipulation , 3 to 4 regions completed [facility] [place] [place] [address] [facility] [address], [place], [address], [place] [facility] 05/02/2025 17:25:49 5 98258: Spinal manipulation , 3 to 4 regions completed Porfirio Burris, TOMMIE [address] [facility] [address], [place], [address], [place] [facility] 04/10/2025 18:41:29 5 94195: Spinal manipulation , 3 to 4 regions completed Chucho De La Paz [place] [address] [facility] [address], [place], [address], [place] [facility] 04/06/2025 14:35:22 5 68650: Spinal manipulation , 3 to 4 regions completed Porfirio Ljeder Burris, TOMMIE [address] [facility] [address], [place], [address], [place] [facility] 03/29/2025 16:10:26 5 16250: Spinal manipulation , 3 to 4 regions completed Chucho De La Paz [place] [address] [facility] [address], [place], [address], [facility] 03/23/2025 11:30:44 5 09130: Spinal manipulation , 3 to 4 regions completed Chucho De La Paz [place] [address] [facility] [address], [place], [address], [place] [facility] 03/16/2025 12:42:43 5 07542: Spinal manipulation , 3 to 4 regions completed Chucho De La Paz [place] [address] [facility] [address], [place], [address], [place] [facility] 03/09/2025 12:12:15 5 25879: Spinal manipulation , 3 to 4 regions completed Porfirio Ljeder Burris, TOMMIE [address], [place], [address], [place] [facility] 02/28/2025 19:40:17 5 55583: Spinal manipulation , 3 to 4 regions completed Chucho De La Paz, TOMMIE [address] [facility] [address], [place], [address], [place] [facility] 02/09/2025 12:43:26 5 07496: Spinal manipulation , 3 to 4 regions completed Vijay Deleon DC [address] [place] [address], [place], [address], [facility] 01/18/2025 17:29:42 33776: Spinal manipulation , 3 to 4 regions completed Porfirio Burris [place] [address] [facility] [address], [place], [address], [facility] 11/30/2024 18:29:33 Imaging Results None recorded. Procedure Notes None recorded. Medical Equipment None Reported. Vitals None Recorded Social History None recorded. Functional Status None recorded. Mental Status None recorded. Family History Nothing Reported. Medical History No medical history recorded. Gynecological HistoryNo gynecological history recorded. Obstetrics History GPAL:G 0 P 0 0 0 0 Past Encounters Encounter ID Performer Location Encounter Start Date Encounter Closed Date Diagnosis/Indication Diagnosis SNOMED-CT Code Diagnosis ICD10 Code Diagnosis Note [id number] Chucho De La Paz DC [facility] [address] [place] [address] 03/16/2025 12:30:54 03/16/2025 12:44:46 Cervical segmental dysfunction 793711364 M99.01 Neck pain 39373735 M54.2 Thoracic s egmental dysfunction 115670048 M99.02 Lumbar seg mental dysfunction 377805865 M99.03 Lesion of lumbar spine 175056834 M99.01 Low back pain 717102792 M54.50 Somatic dy sfunction of sacral spine 719389414 M99.04 [id number] Chucho De La Paz DC [facility] & [address] [place] [address] 03/23/2025 11:11:46 03/23/2025 11:52:36 Cervical segmental dysfunction 759096977 M99.01 Neck pain 33009558 M54.2 Thoracic s egmental dysfunction 953891072 M99.02 Lumbar seg mental dysfunction 923545611 M99.03 Lesion of lumbar spine 831641252 M99.01 Low back pain 190311598 M54.50 Somatic dy sfunction of sacral spine 383059635 M99.04 [id number] Porfirio Burris DC [facility] [address] [place] [address] 03/29/2025 12:27:51 03/29/2025 17:08:15 Lumbar segmental dysfunction 352375564 M99.03 Low back pain 045403064 M54.50 Somatic dy sfunction of sacral spine 475192193 M99.04 Thoracic s egmental dysfunction 120385819 M99.02 [id number] Chucho De La Paz DC [facility] [place] [address] [place] [address] 04/06/2025 12:18:08 04/06/2025 18:09:41 Lumbar segmental dysfunction 910637782 M99.03 Low back pain 366443666 M54.50 Somatic dy sfunction of sacral spine 389537531 M99.04 Thoracic s egmental dysfunction 749993236 M99.02 [id number] TOMMIE Veras [facility] [address] [place] [address] 04/10/2025 12:31:23 04/12/2025 10:51:40 Lumbar segmental dysfunction 756423535 M99.03 Low back pain 531937307 M54.50 Somatic dy sfunction of sacral spine 834719035 M99.04 Thoracic s egmental dysfunction 369421438 M99.02 Health Concerns Section Related Observation LastModified by Organization Detai ls LastModified Time None Recorded Concern Status LastModified by Organization Details LastModified Time None Recorded Payers Encounter Date Sequence Insurance Name Policy Number Policy Pastrana Covered Member ID Pastrana Member ID Guarantor Name 04/10/2025 1 [place] [employer] [address] Pike [id number] Kady Pike Notes Date Note Type Note Provider Name and Address Organization Details Recorded Time 04/10/2025 text/html HPI - Lumbar SpineReported bypatient.Location: left Quality:aching Severity:moderate Timing:morning Aggravating Factors:walking; lifting; carrying; twisting Alleviating Factors:rest Porfirio Burris DC [address] [place] [address], [place], [address], [facility] 04/10/2025 18:42:10 OBGyn Episode No OBEpisode recorded.
--- OUTSIDE RECORDS SUMMARY | 2025-05-03 00:24 | XMS_ITS | Clinical Summary ---
Author Organization [facility] Address [address] [place] [address] Care Team Providers Care Warp Tension Tester Name Role Phone No Primary/Referring, Austen Primary Care Provider Unavailable Source Comments You are receiving this document as you are listed as the primary care provider,follow-up provider, or the patient has been referred to you for consultation.This is in compliance with the Medicare and[facility] EHR Incentive Program,which states Providers who transition their patient to another setting of careor provider of care or refers their patient to another provider of care shouldprovide summary care record for each transition of care or referral. [employer] Allergies No known active allergies Medications acetaminophen [...] this topic Insurance BS FEDERAL Care Teams Warp Tension Tester Relationship Specialty Start Date End Date No Primary/Referring, Phy PCP - General 05/18/19
--- OUTSIDE RECORDS SUMMARY | 2025-05-03 00:24 | XMS_ITS | Continuity of Care Document ---
Author Organization [place] [facility] Address [address] [facility] [address] [place] [address] Assessment Encounter Date Assessment Date Assessment LastModified by Organization Details LastModified Time 03/29/2025 03/29/2025 ASSESSMENT: Patient is a good candidate for [...] to contact our office. [email or web address] Not available 03/29/2025 16:09:56 Plan of Treatment Reminders Order Date Submit [...] Address Organization Details Recorded Time Neck pain 30369681 Active 2024 Porfirio Burris [place] [address] [facility] [address], [place], [address], [place] [facility] 18:29:25 Thoracic segmental dysfunction 350323014 Active 2024 Porfirio Burris [place] [address] [facility], [place], [address], [place] [facility] 18:29:25 Lumbar segmental dysfunction 974559195 Active 2024 Porfirio Burris [place] [address] [facility], [place], [address], [place] [facility] 18:29:25 Lesion of lumbar spine 886526036 Active 2024 Porfirio Burris [place] [address] [facility] [address], [place], [address], [place] [facility] 18:29:25 Cervical segmental dysfunction 133873196 Active 2024 Porfirio BurrisMIRA [place], [place] [address] [facility] [address], [place], [address], [place] [facility] 18:29:26 Low back pain 151955069 Active 2024 Chucho De La Paz [place] [address] [facility] [address], [place], [address], [place] [facility] 12:12:23 Somatic dysfunction of sacral spine 788986778 Active 2024 Chucho De La Paz [address], [place], [address], [place] [facility] 12:12:23 Problem Notes None recorded. Procedures Surgical History Date Name Laterality Status Provider Name and Address Organization Details Recorded Time 5 89117: Spinal manipulation , 3 to 4 regions completed [facility] [place] [address] [facility] [address], [place], [address], [place] [facility] 05/02/2025 17:25:49 5 96643: Spinal manipulation , 3 to 4 regions completed Porfirio Burris, TOMMIE [address] [facility] [address], [place], [address], [place] [facility] 04/10/2025 18:41:29 5 06391: Spinal manipulation , 3 to 4 regions completed Chucho De La Paz [place] [address] [facility] [address] [facility], [place], [address], [place] [facility] 04/06/2025 14:35:22 5 69292: Spinal manipulation , 3 to 4 regions completed Porfirio Ljeder Burris, TOMMIE [address] [facility] [address] [facility], [place], [address], [place] [facility] 03/29/2025 16:10:26 5 57324: Spinal manipulation , 3 to 4 regions completed Chucho De La Paz [place] [address] [facility], [place], [address], [facility] 03/23/2025 11:30:44 5 14361: Spinal manipulation , 3 to 4 regions completed Chucho De La Paz [place] [address] [facility] [address], [place], [address], [place] [facility] 03/16/2025 12:42:43 5 03351: Spinal manipulation , 3 to 4 regions completed Chucho De La Paz [place] [address] [facility] [address], [place], [address], [place] [facility] 03/09/2025 12:12:15 5 71561: Spinal manipulation , 3 to 4 regions completed Porfirio Ljeder Burris, TOMMIE [address] [facility] [address], [place], [address], [place] [facility] 02/28/2025 19:40:17 5 70280: Spinal manipulation , 3 to 4 regions completed Chucho De La Paz, TOMMIE [address] [facility] [address], [place], [address], [place] [facility] 02/09/2025 12:43:26 5 26267: Spinal manipulation , 3 to 4 regions completed Vijay Deleon [place] [address] [address], [place], [address], [facility] 01/18/2025 17:29:42 20279: Spinal manipulation , 3 to 4 regions completed Porfirio Burris [place] [address] [address], [place], [address], [facility] 11/30/2024 18:29:33 Imaging Results None recorded. Procedure [...] SNOMED-CT Code Diagnosis ICD10 Code Diagnosis Note [id number] Porfirio Burris DC [facility] & [address] [place] [address] 02/28/2025 19:12:44 03/02/2025 18:15:07 Cervical segmental dysfunction 659875470 M99.01 Neck pain 79194396 M54.2 Thoracic s egmental dysfunction 427577250 M99.02 Lumbar seg mental dysfunction 631067046 M99.03 Lesion of lumbar spine 069355288 M99.01 [id number] Chucho De La Paz DC [facility] & [address] [place] [address] 03/09/2025 11:32:39 03/09/2025 12:13:13 Cervical segmental dysfunction 612669309 M99.01 Neck pain 12786754 M54.2 Thoracic s egmental dysfunction 596762713 M99.02 Lumbar seg mental dysfunction 122729285 M99.03 Lesion of lumbar spine 176612610 M99.01 Low back pain 466924979 M54.50 Somatic dy sfunction of sacral spine 020520455 M99.04 [id number] Chucho De La Paz DC [facility] & [address] [facility] [place] [address] 03/16/2025 12:30:54 03/16/2025 12:44:46 Cervical segmental dysfunction 507909298 M99.01 Neck pain 34562579 M54.2 Thoracic s egmental dysfunction 205452364 M99.02 Lumbar seg mental dysfunction 760949853 M99.03 Lesion of lumbar spine 652948726 M99.01 Low back pain 127800744 M54.50 Somatic dy sfunction of sacral spine 156481641 M99.04 [id number] Chucho De La Paz DC [facility] [address] [place] [address] 03/23/2025 11:11:46 03/23/2025 11:52:36 Cervical segmental dysfunction 079859398 M99.01 Neck pain 22027792 M54.2 Thoracic s egmental dysfunction 059375047 M99.02 Lumbar seg mental dysfunction 632192986 M99.03 Lesion of lumbar spine 153069061 M99.01 Low back pain 028716255 M54.50 Somatic dy sfunction of sacral spine 358075768 M99.04 [id number] Porfirio Burris DC [facility] & [address] [place] [address] 03/29/2025 12:27:51 03/29/2025 17:08:15 Lumbar segmental dysfunction 848037711 M99.03 Low back pain 249423558 M54.50 Somatic dy sfunction of sacral spine 987918704 M99.04 Thoracic s egmental dysfunction 306314395 M99.02 Health Concerns Section Related Observation LastModified by Organization Detai ls LastModified Time None Recorded Concern Status LastModified by Organization Details LastModified Time None Recorded Payers Encounter Date Sequence Insurance Name Policy Number Policy Pastrana Covered Member ID Pastrana Member ID Guarantor Name 03/29/2025 1 [place] [employer] [address] Pike [id number] Kday Pike Notes Date Note Type Note Provider Name and Address Organization Details Recorded Time 03/29/2025 text/html HPI - Lumbar SpineReported bypatient.Location: left Quality:aching Severity:moderate Timing:morning Aggravating Factors:walking; lifting; carrying; twisting Alleviating Factors:rest Porfirio Burris [place] [address] [facility], [place], [address], [facility] 03/29/2025 16:10:40 OBGyn Episode No OBEpisode recorded.
--- OUTSIDE RECORDS SUMMARY | 2025-05-03 00:24 | XMS_ITS | Encounter Summary ---
Author Organization [facility] Address [address] [place] [address] Care Team Providers Care Carton Stenciler Name Role Phone No Primary/Referring, Phy Primary Care Provider Unavailable Encounter Details Date Type Department Care Team (Late st Contact Info) Description 05/18/2019 [facility] [address] [facility] [place], [place] [id number] José Miguel Sheldon DPM [address] [place] [address] FMLA Social History Tobacco Use [...] on filedocumented in this encounter Care Teams Carton Stenciler Relationship Specialty Start Date End Date No Primary/Referring, Austen PCP - General 05/18/19 documented as of this encounter
--- OUTSIDE RECORDS SUMMARY | 2025-05-03 00:24 | XMS_ITS | Encounter Summary ---
Author Organization [facility] Address [address] [place] [address] Care Team Providers Care Head Of Music Name Role Phone No Primary/Referring, Phy Primary Care Provider Unavailable Encounter Details Date Type Department Care Team (Late st Contact Info) Description 05/18/2019 [facility] [address] [facility] [address] [facility]. [place], [place] [id number] José Miguel Sheldon DPM [address] [place] [address] ATTENDING MD STATEMENT Social History [...] on filedocumented in this encounter Care Teams Head Of Music Relationship Specialty Start Date End Date No Primary/Referring, Austen PCP - General 05/18/19 documented as of this encounter
--- OUTSIDE RECORDS SUMMARY | 2025-05-03 00:25 | XMS_ITS | Data Portability ---
Author Organization [place] - [facility], autoContract - E [employer] [facility] Address [address] [facility] [address] [place] [address] Assessment Encounter Date Assessment Date Assessment LastModified by Organization Details LastModified Time 03/23/2025 03/23/2025 ASSESSMENT: Patient is a good candidate for [...] should not hesitate to contact our office. ASSESSMENT: Patient is a good candidate for [...] should not hesitate to contact our office. [email or web address] Not available 03/23/2025 11:30:44 03/29/2025 03/29/2025 ASSESSMENT: Patient is a good [...] should not hesitate to contact our office. Not available 03/29/2025 16:09:56 04/06/2025 04/06/2025 ASSESSMENT: Patient is a good candidate for [...] should not hesitate to contact our office. ecram Not available 04/06/2025 14:35:22 04/10/2025 04/10/2025 ASSESSMENT: Patient is a good [...] should not hesitate to contact our office. Not available 04/10/2025 18:41:06 05/02/2025 05/02/2025 ASSESSMENT: Patient is a good candidate for [...] should not hesitate to contact our office. Not available 05/02/2025 17:25:28 Plan of Treatment Reminders Order Date Submit Date Provider Last Modified By Organization Details Last Modified Time Details Appointments DC Treatment 05 2024 02:15P Celeste Burris DC Not available Not available Not available Lab None recorded. Referral None recorded. Procedures None recorded. Surgeries None recorded. Imaging None recorded. Medication Orders None recorded. Patient TargetsNo targets recorded. Patient InstructionsNo instructions recorded. Reason for Referral None Reported. Problems Name Problem SNOMED Code Status Onset Date Resolution Date Notes Provider Name and Address Organization Details Recorded Time Neck pain 57710322 Active 2024 Porfirio Burris DC [address] [facility], [place], [address], [facility] 18:29:25 Thoracic segmental dysfunction 650173582 Active 2024 Porfirio Burris DC [address] [facility], [place], [address], [facility] 18:29:25 Lumbar segmental dysfunction 026423481 Active 2024 Porfirio Burris DC [address] [facility], [place], [address], [facility] 18:29:25 Lesion of lumbar spine 600066153 Active 2024 Porfirio Burris DC [address] [facility], [place], [address], [facility] 18:29:25 Cervical segmental dysfunction 352086301 Active 2024 Porfirio Burris DC [address] [facility], [place], [address], [facility] 18:29:26 Low back pain 860106449 Active 2024 Chucho De La Paz DC [address] [facility], [place], [address], [facility] 12:12:23 Somatic dysfunction of sacral spine 167325065 Active 2024 Chucho WardcelesteTOMMIE [address] [facility], [place], [address], [facility] 12:12:23 Problem Notes None recorded. Procedures Surgical History Date Name Laterality Status Provider Name and Address Organization Details Recorded Time 31507: Spinal manipulation , 3 to 4 regions completed Porfirio Burris [place] [address] [facility], [place], [address], [facility] 05/02/2025 17:25:49 06/03/202 5 96559: Spinal manipulation , 3 to 4 regions completed Porfirio Burris DC [address] [facility], [place], [address], [facility] 04/10/2025 18:41:29 5 35291: Spinal manipulation , 3 to 4 regions completed Chucho De La Paz DC [address] [facility], [place], [address], [facility] 04/06/2025 14:35:22 5 13401: Spinal manipulation , 3 to 4 regions completed Porfirio Burris DC [address] [facility], [place], [address], [facility] 03/29/2025 16:10:26 5 48352: Spinal manipulation , 3 to 4 regions completed Chucho De La Paz DC [address] [facility], [place], [address], [facility] 03/23/2025 11:30:44 5 07486: Spinal manipulation , 3 to 4 regions completed Chucho De La Paz DC [address] [facility], [place], [address], [facility] 03/16/2025 12:42:43 5 91238: Spinal manipulation , 3 to 4 regions completed Chucho De La Paz DC [address] [facility], [place], [address], [facility] 03/09/2025 12:12:15 5 28770: Spinal manipulation , 3 to 4 regions completed Porfirio Burris DC [address] [facility], [place], [address], [facility] 02/28/2025 19:40:17 5 04375: Spinal manipulation , 3 to 4 regions completed Chucho De La Paz DC [address] [facility], [place], [address], [facility] 02/09/2025 12:43:26 51682: Spinal manipulation , 3 to 4 regions completed Vijay Deleon DC [address] [place] [address], [place], [address], [facility] 01/18/2025 17:29:42 96642: Spinal manipulation , 3 to 4 regions completed Porfirio Burris DC [address] [place] [address], [place], [address], [facility] 11/30/2024 18:29:33 Imaging Results None recorded. [...] SNOMED-CT Code Diagnosis ICD10 Code Diagnosis Note [id number] Porfirio Burris DC [facility] & [address] [place] [address] 11/30/2024 15:25:03 11/30/2024 18:44:23 Lesion of lumbar spine 000678597 M99.01 Neck pain 12558674 M54.2 Thoracic s egmental dysfunction 289195404 M99.02 Lumbar seg mental dysfunction 371970330 M99.03 Cervical s egmental dysfunction 016731303 M99.01 [id number] Vijay Deleon DC [facility] & [address] [place] [address] 01/18/2025 11:07:44 01/18/2025 18:41:04 Lumbar segmental dysfunction 389291848 M99.03 Thoracic s egmental dysfunction 883792564 M99.02 Neck pain 56173373 M54.2 Cervical s egmental dysfunction 053148334 M99.01 [id number] Chucho De La Paz DC [facility] & [address] [place] [address] 02/09/2025 12:21:06 02/09/2025 12:44:42 Lumbar segmental dysfunction 499689869 M99.03 Thoracic s egmental dysfunction 224221673 M99.02 Neck pain 75461987 M54.2 Cervical s egmental dysfunction 840903646 M99.01 [id number] Porfirio Lj Burris DC [facility] [address] [place] [place] [address] 02/28/2025 19:12:44 03/02/2025 18:15:07 Cervical segmental dysfunction 752813500 M99.01 Neck pain 11074246 M54.2 Thoracic s egmental dysfunction 464163939 M99.02 Lumbar seg mental dysfunction 369041893 M99.03 Lesion of lumbar spine 384683478 M99.01 [id number] Chucho De La Paz DC [facility] & [address] [place] [address] 03/09/2025 11:32:39 03/09/2025 12:13:13 Cervical segmental dysfunction 795961009 M99.01 Neck pain 89769112 M54.2 Thoracic s egmental dysfunction 588014775 M99.02 Lumbar seg mental dysfunction 944195011 M99.03 Lesion of lumbar spine 118379572 M99.01 Low back pain 130440684 M54.50 Somatic dy sfunction of sacral spine 275365711 M99.04 [id number] Chucho De La Paz DC [facility] & [address] [place] [address] 03/16/2025 12:30:54 03/16/2025 12:44:46 Cervical segmental dysfunction 857887612 M99.01 Neck pain 79244936 M54.2 Thoracic s egmental dysfunction 409895001 M99.02 Lumbar seg mental dysfunction 685072293 M99.03 Lesion of lumbar spine 980420017 M99.01 Low back pain 575883700 M54.50 Somatic dy sfunction of sacral spine 551595432 M99.04 [id number] Chucho De La Paz DC [facility] & [address] [place] [address] 03/23/2025 11:11:46 03/23/2025 11:52:36 Cervical segmental dysfunction 608037419 M99.01 Neck pain 58386133 M54.2 Thoracic s egmental dysfunction 187221125 M99.02 Lumbar seg mental dysfunction 698910516 M99.03 Lesion of lumbar spine 250302627 M99.01 Low back pain 156312510 M54.50 Somatic dy sfunction of sacral spine 210718019 M99.04 [id number] Porfirio Burris DC [facility] & [address] [place] [address] 03/29/2025 12:27:51 03/29/2025 17:08:15 Lumbar segmental dysfunction 138937427 M99.03 Low back pain 641112638 M54.50 Somatic dy sfunction of sacral spine 470015188 M99.04 Thoracic s egmental dysfunction 361570623 M99.02 [id number] Chucho De La Paz DC [facility] & [address] [place] [address] 04/06/2025 12:18:08 04/06/2025 18:09:41 Lumbar segmental dysfunction 320619700 M99.03 Low back pain 515073711 M54.50 Somatic dy sfunction of sacral spine 231801057 M99.04 Thoracic s egmental dysfunction 281702355 M99.02 [id number] Porfirio Burris DC [address] [place] [address] 04/10/2025 12:31:23 04/12/2025 10:51:40 Lumbar segmental dysfunction 723259435 M99.03 Low back pain 680534777 M54.50 Somatic dy sfunction of sacral spine 235160593 M99.04 Thoracic s egmental dysfunction 652412721 M99.02 [id number] Porfirio Burris DC [facility] & [address] [place] [address] 05/02/2025 16:06:13 05/02/2025 17:27:37 Lesion of lumbar spine 198793912 M99.01 Neck pain 98146358 M54.2 Thoracic s egmental dysfunction 863731005 M99.02 Lumbar seg mental dysfunction 614507559 M99.03 Cervical s egmental dysfunction 882969587 M99.01 Health Concerns Section Related Observation LastModified by Organization Detai ls LastModified Time None Recorded Concern Status LastModified by Organization Details LastModified Time None Recorded Advance Directives Directive None Recorded Payers Insurance Date Sequence Insurance Name Policy Number Policy Pastrana Covered Member ID Pastrana Member ID Guarantor Name 05/02/2025 1 [facility]: [employer] [address] [id number] Kady Pike Notes Date Note Type Note Provider Name and Address Organization Details Recorded Time 03/23/2025 text/html HPI - Cervical SpineReported bypatient.Location: left Quality:aching Severity:moderate Duration:2 weeks Timing:gradual Alleviating Factors:ice Aggravating Factors:sitting Associated Symptoms:no numbness/tinglingHP I - Lumbar SpineReported bypatient.Location: left; With radiation to knee Quality:aching Severity:not changing Timing:morning Aggravating Factors:standing Alleviating Factors:ice Chucho De La Paz DC [address] [facility], [place], [address], [facility] 03/23/2025 11:31:24 03/29/2025 text/html HPI - Lumbar SpineReported bypatient.Location: left Quality:aching Severity:moderate Timing:morning Aggravating Factors:walking; lifting; carrying; twisting Alleviating Factors:rest Porfirio Burris DC [address] [facility], [place], [address], [facility] 03/29/2025 16:10:40 04/06/2025 text/html HPI - Lumbar SpineReported bypatient.Location: left Quality:aching Severity:moderate Timing:morning Aggravating Factors:walking; lifting; carrying; twisting Alleviating Factors:rest Chucho Pj De La Paz DC [address] [facility], [place], [address], [facility] 04/06/2025 14:36:02 04/10/2025 text/html HPI - Lumbar SpineReported bypatient.Location: left Quality:aching Severity:moderate Timing:morning Aggravating Factors:walking; lifting; carrying; twisting Alleviating Factors:rest Porfirio Calhoun TOMMIE Burris [address] [facility], [place], [address], [facility] 04/10/2025 18:42:10 05/02/2025 text/html HPI - Cervical SpineReported bypatient.Location: left Quality:aching Severity:moderate Duration:2 weeks Timing:gradual Alleviating Factors:ice Aggravating Factors:sitting Associated Symptoms:no numbness/tingling Porfirio Burris DC [address] [facility], [place], [address], [facility] 05/02/2025 17:26:16 OBGyn Episode No OBEpisode recorded.
--- OUTSIDE RECORDS SUMMARY | 2025-05-03 00:25 | XMS_ITS | Continuity of Care Document ---
Author Organization [place] - [facility] Address [address] [facility] [address] [place] [address] Assessment Encounter Date Assessment Date Assessment LastModified by Organization Details LastModified Time 05/02/2025 05/02/2025 ASSESSMENT: Patient is a good [...] to contact our office. [email or web address] Not available 05/02/2025 17:25:28 Plan of Treatment [...] Address Organization Details Recorded Time Neck pain 49184603 Active 2024 Porfirio Burris [place] [address] [facility], [place], [address], [place] [facility] 18:29:25 Thoracic segmental dysfunction 104457419 Active 2024 Porfirio Burris [place] [address] [facility], [place], [address], [place] [facility] 18:29:25 Lumbar segmental dysfunction 893520028 Active 2024 Porfirio Burris [place] [address] [facility], [place], [address], [place] [facility] 18:29:25 Lesion of lumbar spine 419942042 Active 2024 Porfirio Burris [place] [address] [facility], [place], [address], [place] [facility] 18:29:25 Cervical segmental dysfunction 956264661 Active 2024 Porfirio BurrisSEASIDE, [place] [address] [facility] [address] [facility], [place], [address], [place] [facility] 18:29:26 Low back pain 639801377 Active 2024 Chucho De La Paz [place] [address] [facility], [place], [address], [place] [facility] 12:12:23 Somatic dysfunction of sacral spine 566183392 Active 2024 Chucho De La Paz [address], [place], [address], [place] [facility] 12:12:23 Problem Notes None recorded. Procedures Surgical History Date Name Laterality Status Provider Name and Address Organization Details Recorded Time 5 85546: Spinal manipulation , 3 to 4 regions [facility] [place] [address] [facility], [place], [address], [place] [facility] 05/02/2025 17:25:49 5 61930: Spinal manipulation , 3 to 4 regions completed Porfirio Burris, TOMMIE [address] [facility], [place], [address], [place] [facility] 04/10/2025 18:41:29 5 35796: Spinal manipulation , 3 to 4 regions completed Chucho De La Paz DC [address] [facility], [place], [address], [place] [facility] 04/06/2025 14:35:22 5 28001: Spinal manipulation , 3 to 4 regions completed Porfirio Ljeder Burris, TOMMIE [address] [facility], [place], [address], [place] [facility] 03/29/2025 16:10:26 5 27208: Spinal manipulation , 3 to 4 regions completed Chucho De La Paz DC [address] [facility], [place], [address], [facility] 03/23/2025 11:30:44 5 72728: Spinal manipulation , 3 to 4 regions completed Chucho De La Paz DC [address] [facility], [place], [address], [place] [facility] 03/16/2025 12:42:43 5 18684: Spinal manipulation , 3 to 4 regions completed Chucho De La Paz DC [address] [facility], [place], [address], [place] [facility] 03/09/2025 12:12:15 5 78100: Spinal manipulation , 3 to 4 regions completed Porfirio Ljeder Burris, TOMMIE [address] [facility], [place], [address], [place] [facility] 02/28/2025 19:40:17 5 19283: Spinal manipulation , 3 to 4 regions completed Chucho De La Paz, TOMMIE [address] [facility], [place], [address], [place] [facility] 02/09/2025 12:43:26 5 22324: Spinal manipulation , 3 to 4 regions completed Vijay Deleon DC [address] [place] [address], [place], [address] 01/18/2025 17:29:42 10915: Spinal manipulation , 3 to 4 regions completed Porfirio Burris DC [address] [facility], [place], [address], [facility] 11/30/2024 18:29:33 Imaging Results None recorded. Procedure [...] SNOMED-CT Code Diagnosis ICD10 Code Diagnosis Note [id number] Chucho De La Paz DC [facility] [address] [place] [address] 04/06/2025 12:18:08 04/06/2025 18:09:41 Lumbar segmental dysfunction 032946547 M99.03 Low back pain 358782929 M54.50 Somatic dy sfunction of sacral spine 175715585 M99.04 Thoracic s egmental dysfunction 568134037 M99.02 [id number] Porfirio Burris DC [facility] & [address] [place] [address] 04/10/2025 12:31:23 04/12/2025 10:51:40 Lumbar segmental dysfunction 315610187 M99.03 Low back pain 078986647 M54.50 Somatic dy sfunction of sacral spine 391715639 M99.04 Thoracic s egmental dysfunction 567293196 M99.02 [id number] Porfirio Burris [facility] [address] [place] [address] 05/02/2025 16:06:13 05/02/2025 17:27:37 Lesion of lumbar spine 849403265 M99.01 Neck pain 39659613 M54.2 Thoracic s egmental dysfunction 523911180 M99.02 Lumbar seg mental dysfunction 747256154 M99.03 Cervical s egmental dysfunction 546780818 M99.01 Health Concerns Section Related Observation LastModified by Organization Detai ls LastModified Time None Recorded Concern Status LastModified by Organization Details LastModified Time None Recorded Payers Encounter Date Sequence Insurance Name Policy Number Policy Pastrana Covered Member ID Pastrana Member ID Guarantor Name 05/02/2025 1 [place] [employer] [facility] [employer] [address] [id number] Kady Pike Notes Date Note Type Note Provider Name and Address Organization Details Recorded Time 05/02/2025 text/html HPI - Cervical SpineReported bypatient.Location: left Quality:aching Severity:moderate Duration:2 weeks Timing:gradual Alleviating Factors:ice Aggravating Factors:sitting Associated Symptoms:no numbness/tingling Scot Lj Burris DC [address] [facility], [place], [address], [place] [facility] 05/02/2025 17:26:16 OBGyn Episode No OBEpisode recorded.
--- OUTSIDE RECORDS SUMMARY | 2025-05-03 00:25 | XMS_ITS | Continuity of Care Document ---
Author Organization [facility] Address [address] [facility] [place] [address] Assessment Encounter Date Assessment Date Assessment LastModified by Organization Details LastModified Time 04/06/2025 04/06/2025 ASSESSMENT: Patient is a good [...] our office. ecram Not available 04/06/2025 14:35:22 Plan of Treatment Reminders Order Date Submit [...] Address Organization Details Recorded Time Neck pain 34870447 Active 2024 Porfirio Burris [place] [address] [facility], [place], [address], [place] [facility] 18:29:25 Thoracic segmental dysfunction 689044430 Active 2024 Porfirio Burris [place] [address] [facility], [place], [address], [place] [facility] 18:29:25 Lumbar segmental dysfunction 393286678 Active 2024 Porfirio Burris [place] [address] [facility], [place], [address], [place] [facility] 18:29:25 Lesion of lumbar spine 454464206 Active 2024 Porfirio Burris [place] [address] [facility], [place], [address], [place] [facility] 18:29:25 Cervical segmental dysfunction 283714254 Active [address], [place], [address], [place] [facility] 18:29:26 Low back pain 599391325 Active 2024 Chucho De La Paz DC [address] [facility], [place], [address], [place] [facility] 12:12:23 Somatic dysfunction of sacral spine 717058900 Active 2024 Chucho De La Paz DC [address] [place] [address], [place], [address], [place] [facility] 12:12:23 Problem Notes None recorded. Procedures Surgical History Date Name Laterality Status Provider Name and Address Organization Details Recorded Time 5 41581: Spinal manipulation , 3 to 4 regions completed [place], [place] [address] [facility], [place], [address], [place] [facility] 05/02/2025 17:25:49 5 94879: Spinal manipulation , 3 to 4 regions completed Porfirio Burris DC [address] [facility], [place], [address], [place] [facility] 04/10/2025 18:41:29 5 24734: Spinal manipulation , 3 to 4 regions completed Chucho De La Paz DC [address] [facility], [place], [address], [place] [facility] 04/06/2025 14:35:22 5 81203: Spinal manipulation , 3 to 4 regions completed Porfirio Burris DC [address] [facility], [place], [address], [place] [facility] 03/29/2025 16:10:26 5 23389: Spinal manipulation , 3 to 4 regions completed Chucho De La Paz DC [address] [facility], [place], [address], [place] [facility] 03/23/2025 11:30:44 5 69756: Spinal manipulation , 3 to 4 regions completed Chucho De La Paz DC [address] [facility], [place], [address], [place] [facility] 03/16/2025 12:42:43 5 99749: Spinal manipulation , 3 to 4 regions completed Chucho De La Paz DC [address] [facility], [place], [address], [place] [facility] 03/09/2025 12:12:15 5 10782: Spinal manipulation , 3 to 4 regions completed Porfirio Burris DC [address] [facility], [place], [address], [place] [facility] 02/28/2025 19:40:17 5 18643: Spinal manipulation , 3 to 4 regions completed Chucho De La Paz DC [address] [facility], [place], [address], [place] [facility] 02/09/2025 12:43:26 5 71504: Spinal manipulation , 3 to 4 regions completed Vijay Deleon DC [address] [facility], [place], [address], [facility] - [facility] 01/18/2025 17:29:42 75643: Spinal manipulation , 3 to 4 regions completed Porfirio Lj Burris DC [address] [facility], [place], [address], [facility] 11/30/2024 18:29:33 Imaging Results None recorded. Procedure [...] SNOMED-CT Code Diagnosis ICD10 Code Diagnosis Note [id number] [facility] & [address] [place] [address] 03/09/2025 11:32:39 03/09/2025 12:13:13 Cervical segmental dysfunction 078630413 M99.01 Neck pain 81078690 M54.2 Thoracic s egmental dysfunction 912151217 M99.02 Lumbar seg mental dysfunction 464594263 M99.03 Lesion of lumbar spine 628497568 M99.01 Low back pain 184199337 M54.50 Somatic dy sfunction of sacral spine 697666618 M99.04 [id number] Chucho De La Paz DC [facility] & [address] [place] [address] 03/16/2025 12:30:54 03/16/2025 12:44:46 Cervical segmental dysfunction 628273500 M99.01 Neck pain 17379436 M54.2 Thoracic s egmental dysfunction 966175849 M99.02 Lumbar seg mental dysfunction 947643466 M99.03 Lesion of lumbar spine 934602624 M99.01 Low back pain 761708513 M54.50 Somatic dy sfunction of sacral spine 978589767 M99.04 [id number] Chucho De La Paz DC [facility] & [address] [facility] [place] [place] [address] 03/23/2025 11:11:46 03/23/2025 11:52:36 Cervical segmental dysfunction 546167694 M99.01 Neck pain 60148302 M54.2 Thoracic s egmental dysfunction 119942323 M99.02 Lumbar seg mental dysfunction 136885210 M99.03 Lesion of lumbar spine 519068233 M99.01 Low back pain 753820038 M54.50 Somatic dy sfunction of sacral spine 882446998 M99.04 [id number] Porfirio Burris DC [facility] & [address] [facility] [place] [address] 03/29/2025 12:27:51 03/29/2025 17:08:15 Lumbar segmental dysfunction 188246149 M99.03 Low back pain 730209679 M54.50 Somatic dy sfunction of sacral spine 761359417 M99.04 Thoracic s egmental dysfunction 418193897 M99.02 [id number] Chucho De La Paz DC [facility] & [address] [facility] [place] [address] 04/06/2025 12:18:08 04/06/2025 18:09:41 Lumbar segmental dysfunction 628954157 M99.03 Low back pain 186758540 M54.50 Somatic dy sfunction of sacral spine 411937111 M99.04 Thoracic s egmental dysfunction 080201219 M99.02 Health Concerns Section Related Observation LastModified by Organization Detai ls LastModified Time None Recorded Concern Status LastModified by Organization Details LastModified Time None Recorded Payers Encounter Date Sequence Insurance Name Policy Number Policy Pastrana Covered Member ID Pastrana Member ID Guarantor Name 04/06/2025 1 [place] [employer] [address] Pike [id number] Kady Pike Notes Date Note Type Note Provider Name and Address Organization Details Recorded Time 04/06/2025 text/html HPI - Lumbar SpineReported bypatient.Location: left Quality:aching Severity:moderate Timing:morning Aggravating Factors:walking; lifting; carrying; twisting Alleviating Factors:rest Chucho De La Paz DC [address] [place] [address], [place], [address], [facility] - [facility] 04/06/2025 14:36:02 OBGyn Episode No OBEpisode recorded.
--- OUTSIDE RECORDS SUMMARY | 2025-05-03 00:26 | XMS_ITS | Clinical Summary ---
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
--- OUTSIDE RECORDS SUMMARY | 2025-05-03 00:26 | XMS_ITS | Continuity of Care Document ---
Author Organization [facility] Address [address] [facility] [address] [place] [address] Assessment Encounter Date Assessment Date Assessment LastModified [...] our office. ecram Not available 03/23/2025 11:30:44 Plan of Treatment Reminders Order Date Submit Date Provider Last Modified By Organization Details Last Modified Time Details Appointments DC Treatment 2024 02:15P M Porfirio Burris [place] Not available Not available Not available Lab None recorded. Referral None recorded. Procedures None recorded. Surgeries None recorded. Imaging None recorded. Medication Orders None recorded. Patient TargetsNo targets recorded. Patient InstructionsNo instructions recorded. Reason for Referral None Reported. Problems Name Problem SNOMED Code Status Onset Date Resolution Date Notes Provider Name and Address Organization Details Recorded Time Neck pain 46556866 Active [address], [facility], [address], [place] [facility] 18:29:25 Thoracic segmental dysfunction 317655928 Active 2024 [place], [place] [address] [facility], [place], [address], [place] [facility] 18:29:25 Lumbar segmental dysfunction 185257469 Active 2024 [place]io [place], [place] [address] [facility], [facility] [place], [address], [place] [facility] 18:29:25 Lesion of lumbar spine 436654132 Active [address], [place], [address], [facility] - [facility] 18:29:25 Cervical segmental dysfunction 502132643 Active [address], [facility] [place], [address], [facility] - [facility] 18:29:26 Low back pain 900701346 Active 2024 Chucho De La Paz, [place] [address] [facility], [place], [address], [facility] - [facility] 12:12:23 Somatic dysfunction of sacral spine 047327614 Active 2024 Chucho Pj De La Paz DC [address] [facility], [place], [address], [facility] - [facility] 12:12:23 Problem Notes None recorded. Procedures Surgical History Date Name Laterality Status Provider Name and Address Organization Details Recorded Time 5 28208: Spinal manipulation , 3 to 4 regions completed Porfirio FlowersjayshreeclaraTOMMIE [address] [facility], [place], [address], [facility] - [facility] 05/02/2025 17:25:49 5 77990: Spinal manipulation , 3 to 4 regions completed Porfirio FlowersjayshreeclaraTOMMIE [address] [facility], [place], [address], [facility] hospital 04/10/2025 18:41:29 5 37249: Spinal manipulation , 3 to 4 regions completed Chucho De La Paz DC [address] [facility], [place], [address], [facility] hospital 04/06/2025 14:35:22 5 33922: Spinal manipulation , 3 to 4 regions completed Porfirio FlowersjayshreeclaraTOMMIE [address] [facility], [place], [address], Critical [facility] hospital 03/29/2025 16:10:26 5 80581: Spinal manipulation , 3 to 4 regions completed Chucho De La Paz DC [address] [facility], [place], [address], Critical access hospital 03/23/2025 11:30:44 5 76934: Spinal manipulation , 3 to 4 regions completed Chucho De La Paz DC [address] [facility], [place], [address], Critical access hospital 03/16/2025 12:42:43 5 65562: Spinal manipulation , 3 to 4 regions completed Chucho De La Paz DC [address] [place] [address], [place], [address], Critical access hospital 03/09/2025 12:12:15 5 16918: Spinal manipulation , 3 to 4 regions completed Porfirio Burris DC [address] [facility], [place], [address], Critical access hospital 02/28/2025 19:40:17 5 32469: Spinal manipulation , 3 to 4 regions completed Chucho De La Paz DC [address] [facility], [place], [address], Critical [facility] hospital 02/09/2025 12:43:26 5 83825: Spinal manipulation , 3 to 4 regions completed Vijay Deleon DC [address] [place] [address], [place], [address], Critical access hospital 01/18/2025 17:29:42 5 69189: Spinal manipulation , 3 to 4 regions completed Porfirio Burris DC [address] [facility], [place], [address], Critical access hospital 11/30/2024 18:29:33 Imaging Results None recorded. [...] SNOMED-CT Code Diagnosis ICD10 Code Diagnosis Note [id number] TOMMIE Veras [facility] [address] [place] [address] [place] [address] 02/28/2025 19:12:44 03/02/2025 18:15:07 Cervical segmental dysfunction 936969924 M99.01 Neck pain 98230870 M54.2 Thoracic s egmental dysfunction 045209143 M99.02 Lumbar seg mental dysfunction 596517983 M99.03 Lesion of lumbar spine 984360304 M99.01 [id number] TOMMIE Zavala [facility] [address] [facility] [place] [address] 03/09/2025 11:32:39 03/09/2025 12:13:13 Cervical segmental dysfunction 771482715 M99.01 Neck pain 26750860 M54.2 Thoracic s egmental dysfunction 889518817 M99.02 Lumbar seg mental dysfunction 462008241 M99.03 Lesion of lumbar spine 806984258 M99.01 Low back pain 088080433 M54.50 Somatic dy sfunction of sacral spine 924099560 M99.04 [id number] Chucho De La Paz DC [facility] & [address] [place] [address] 03/16/2025 12:30:54 03/16/2025 12:44:46 Cervical segmental dysfunction 169964513 M99.01 Neck pain 37846873 M54.2 Thoracic s egmental dysfunction 896742599 M99.02 Lumbar seg mental dysfunction 010841260 M99.03 Lesion of lumbar spine 484942027 M99.01 Low back pain 909793512 M54.50 Somatic dy sfunction of sacral spine 142278268 M99.04 [id number] Chucho De La Paz DC [facility] & [address] [place] [address] 03/23/2025 11:11:46 03/23/2025 11:52:36 Cervical segmental dysfunction 976322712 M99.01 Neck pain 04821257 M54.2 Thoracic s egmental dysfunction 320474601 M99.02 Lumbar seg mental dysfunction 809391242 M99.03 Lesion of lumbar spine 475558487 M99.01 Low back pain 728963190 M54.50 Somatic dy sfunction of sacral spine 036567431 M99.04 Health Concerns Section Related Observation LastModified by Organization Detai ls LastModified Time None Recorded Concern Status LastModified by Organization Details LastModified Time None Recorded Payers Encounter Date Sequence Insurance Name Policy Number Policy Pastrana Covered Member ID Pastrana Member ID Guarantor Name 03/23/2025 1 [place] [employer] 113 Sel[address] Pike [id number] Kady Pike Notes Date Note Type Note Provider Name and Address Organization Details Recorded Time 03/23/2025 text/html HPI - Cervical SpineReported bypatient.Location: left Quality:aching Severity:moderate Duration:2 weeks Timing:gradual Alleviating Factors:ice Aggravating Factors:sitting Associated Symptoms:no numbness/tinglingHP I - Lumbar SpineReported bypatient.Location: left; With radiation to knee Quality:aching Severity:not changing Timing:morning Aggravating Factors:standing Alleviating Factors:ice Chucho De La Paz DC [address] [facility], [place], [address], Critical access hospital 03/23/2025 11:31:24 OBGyn Episode No OBEpisode recorded.
== END 2025-05-02 12:47 | disposition home or self-care (01) ==
PROVIDERS: Visit Provider Obstetrics & Gynecology
DX: Z39.1 Encounter for care and examination of lactating mother (principal)
CPT/HCPCS: G0463

== ENCOUNTER 2025-05-23 14:13 | Outpatient (CLI) | payer BC, SELFPAY ==
[2025-05-25 20:37] LABS: HPV Source Cervical
== END 2025-05-23 14:14 | disposition home or self-care (01) ==
PROVIDERS: Visit Provider Midwife
DX: Z39.2 Encounter for routine postpartum follow-up (principal)
CPT/HCPCS: 87624; 87625; 88141; 88142